=== PATIENT | male | born 1955 | race Caucasian/White ===

== ENCOUNTER → 2016-08-12 | Outpatient (REF) | payer BC ==
[~2016-08-12] MED LIST: ASPI325T PO; ATEN25TA PO; ATOR1TAB21 PO; CIAL20TA PO; FLUO0.01 EX; LISI-542 PO; NITR0.1S TL; NITR0.4S14 SL; NITR400A5 TL; OMEP20CA3 PO; VALT1TAB PO; VOLT1GEL15 TD
[2016-08-12 13:29] LABS: BASO % 0.7 % (0.0-1.0); EOS # 0.3 K/mm3 (0.0-0.50); EOS % 4.9 % (0.0-3.0); LARGE UNSTAINED CELL # 0.2 K/mm3 (0.0-0.4); LARGE UNSTAINED CELL % 3.8 % (0.0-4.0); LYMPH # 1.4 K/mm3 (1.5-4.5); LYMPH % 24.8 % (24.0-44.0); MEAN CORPUSCULAR HEMOGLOBIN 32.2 pg (27.0-33.0); MEAN CORPUSCULAR HGB CONC 34.1 g/dl (32.0-36.5); MEAN CORPUSCULAR VOLUME 94.5 fl (80.0-96.0); MONO # 0.4 K/mm3 (0.0-0.8); NEUTROPHILS # 3.3 K/mm3 (1.8-7.7); NEUTROPHILS % 58.8 % (36.0-66.0); PLATELET COUNT, AUTOMATED 264 k/mm3 (150-450); RED CELL DISTRIBUTION WIDTH 12.6 % (11.5-14.5); WHITE BLOOD COUNT 5.7 K/mm3 (4.0-10.0)
[2016-08-12 14:37] LABS: ALBUMIN 4.2 GM/DL (3.2-5.2); ALBUMIN/GLOBULIN RATIO 1.17 (1.00-1.93); ALKALINE PHOSPHATASE 56 U/L (45-117); ALT/SGPT 26 U/L (12-78); ANION GAP 7 MEQ/L (8-16); AST/SGOT 21 U/L (15-37); BILIRUBIN,TOTAL 0.5 MG/DL (0.2-1.0); BLOOD UREA NITROGEN 10 MG/DL (7-18); CALCIUM LEVEL 9.3 MG/DL (8.8-10.2); CARBON DIOXIDE LEVEL 30 MEQ/L (21-32); CHLORIDE LEVEL 105 MEQ/L (98-107); CHOLESTEROL LEVEL 194 MG/DL (<200); CREATININE FOR GFR 0.98 MG/DL (0.70-1.30); FREE T4 0.87 NG/DL (0.76-1.46); GLOMERULAR FILTRATION RATE > 60.0 (>49); GLUCOSE, FASTING 104 MG/DL (80-110); SODIUM LEVEL 142 MEQ/L (136-145); TOTAL PROTEIN 7.8 GM/DL (6.4-8.2); TRIGLYCERIDES LEVEL 60 MG/DL (<150)
[2016-08-12 14:38] LABS: POTASSIUM SERUM 5.3 MEQ/L (3.5-5.1)
== END ==
LOC: M LAB REF 12:46
PROVIDERS: ATTEND Family Medicine
DX: E78.5 Hyperlipidemia, unspecified (principal); Z13.29 Encounter for screening for other suspected endocrine disorder; Z13.0 Encounter for screening for diseases of the blood and blood-forming organs and certain disorders involving the immune mechanism; Z12.5 Encounter for screening for malignant neoplasm of prostate
CPT/HCPCS: 80053; 80061; 84439; 84443; 85025; G0103

== ENCOUNTER → 2017-08-15 | Outpatient (CLI) | payer BC ==
[2017-08-15 12:27] LABS: BASO % 0.5 % (0.0-1.0); EOS # 0.1 10^3/uL (0.0-0.50); EOS % 1.5 % (0.0-3.0); HEMATOCRIT 42.5 % (42.0-52.0); HEMOGLOBIN 14.4 g/dl (13.5-17.5); IMMATURE GRANULOCYTE % 0.4 % (0-3.0); LYMPH # 1.4 10^3/uL (1.5-4.5); LYMPH % 17.6 % (24.0-44.0); MEAN CORPUSCULAR HEMOGLOBIN 31.2 pg (27.0-33.0); MEAN CORPUSCULAR HGB CONC 33.9 g/dl (32.0-36.5); MONO # 0.7 10^3/uL (0.0-0.8); MONO % 9.1 % (0.0-5.0); NEUTROPHILS # 5.6 10^3/uL (1.8-7.7); NEUTROPHILS % 70.9 % (36.0-66.0); PLATELET COUNT, AUTOMATED 268 10^3/uL (150-450); RED BLOOD COUNT 4.62 10^6/uL (4.30-6.10); RED CELL DISTRIBUTION WIDTH 12.7 % (11.5-14.5); WHITE BLOOD COUNT 7.9 10^3/uL (4.0-10.0)
[2017-08-15 12:59] LABS: ALBUMIN 4.2 GM/DL (3.2-5.2); ALKALINE PHOSPHATASE 62 U/L (45-117); ALT/SGPT 25 U/L (12-78); ANION GAP 7 MEQ/L (8-16); AST/SGOT 18 U/L (7-37); BILIRUBIN,TOTAL 0.7 MG/DL (0.2-1.0); BLOOD UREA NITROGEN 13 MG/DL (7-18); CALCIUM LEVEL 9.2 MG/DL (8.8-10.2); CARBON DIOXIDE LEVEL 31 MEQ/L (21-32); CHLORIDE LEVEL 102 MEQ/L (98-107); CHOLESTEROL LEVEL 197 MG/DL (<200); CHOLESTEROL RISK RATIO 2.698 (<5); CREATININE FOR GFR 1.04 MG/DL (0.70-1.30); FREE T4 0.89 NG/DL (0.76-1.46); GLOMERULAR FILTRATION RATE > 60.0 (>49); GLUCOSE, FASTING 113 MG/DL (70-100); HDL CHOLESTEROL 73 MG/DL (>40); LDL CHOLESTEROL 109.4 MG/DL (<100); NON-HDL-C 124 MG/DL; PSA SCREENING 1.16 NG/ML (< 4.0); SODIUM LEVEL 140 MEQ/L (136-145); TOTAL PROTEIN 7.7 GM/DL (6.4-8.2); TRIGLYCERIDES LEVEL 73 MG/DL (<150)
[2017-08-15 13:08] LABS: POTASSIUM SERUM 5.4 MEQ/L (3.5-5.1)
[2017-08-16 10:30] LABS: ESTIMATED AVERAGE GLUCOSE 117 MG/DL (60-110); HEMOGLOBIN A1c 5.7 %
== END ==
LOC: M ADAMS 10:47
DX: Z13.0 Encounter for screening for diseases of the blood and blood-forming organs and certain disorders involving the immune mechanism (principal); E78.5 Hyperlipidemia, unspecified; Z13.29 Encounter for screening for other suspected endocrine disorder
CPT/HCPCS: 84443

== ENCOUNTER → 2017-08-17 | Outpatient (REF) | payer BC ==
[2017-08-17 20:12] LABS: APPEARANCE, URINE CLEAR (CLEAR); BACTERIA, URINE AUTO NEGATIVE (NEGATIVE); BILIRUBIN, URINE AUTO NEGATIVE (NEGATIVE); BLOOD, URINE BLOOD NEGATIVE (NEGATIVE); COLOR, URINE YELLOW (YELLOW); GLUCOSE, URINE (UA) AUTO NEGATIVE (NEGATIVE); KETONE, URINE AUTO NEGATIVE (NEGATIVE); LEUKOCYTE ESTERASE, URINE AUTO NEGATIVE (NEGATIVE); MUCUS, URINE SMALL (NEGATIVE); NITRITE, URINE AUTO NEGATIVE (NEGATIVE); PROTEIN, URINE AUTO NEGATIVE (NEGATIVE); RBC, URINE AUTO 0 /HPF (0-3); SPECIFIC GRAVITY URINE AUTO 1.009 (1.002-1.035); SQUAMOUS EPITHELIAL CELL UR AU 0 /HPF (0-6); UROBILINOGEN, URINE AUTO 0.2 mg/dL (0.0-2.0); WBC, URINE AUTO 0 /HPF (0-3)
== END ==
LOC: M SMT 17:13
DX: R36.1 Hematospermia (principal)

== ENCOUNTER 2018-08-10 10:05 | Emergency (ER) | payer BC, OTHER ==
[~2018-08-10] VITALS: Ht 170.2 cm; Wt 77.1 kg
[~2018-08-10 10:05] MED LIST changes: +ASPI-1 PO; -ASPI325T PO; -FLUO0.01 EX; +FLUO0.0112 EX; -OMEP20CA3 PO; +OMEP20CA4 PO
[2018-08-10] MEDS ORDERED: NEXI20TA PO (11:01)
[2018-08-10] MEDS ORDERED: BISO5TAB5 PO (11:01)
--- NOTE | 2018-08-10 11:06 | REP ---
Clinical: Right hip pain Technique: Neutral and frog lateral views of the right hip. Findings: Mild medial joint space narrowing and subtle increased sclerosis to the acetabular roof with early spurring. No acute fracture dislocation. Impression: Mild arthritic degenerative changes. Electronically Signed by Vishal Guzmán MD 08/10/2018 10:58 A
--- NOTE | 2018-08-10 11:15 | REP ---
Clinical: Lower back pain. Technique: AP, lateral, bilateral oblique and coned-down views of the lumbosacral spine. Findings: Moderate/early advanced multilevel degenerative disc osteophyte complexes are appreciated throughout the visualized lower thoracic and lumbosacral spine. Alignment and lordosis maintained. No acute fracture / compression injury or subluxation. Impression: Moderate/early advanced multilevel degenerative spondylosis. Electronically Signed by Vishal Guzmán MD 08/10/2018 11:07 A
[2018-08-10 11:34] VITALS: BP 155/80
[2018-08-10] MEDS ORDERED: PRED10TA2 PO (11:42)
[2018-08-10] MEDS ORDERED: NEUR300C PO (11:42)
== END 2018-08-10 11:52 | disposition home or self-care (01) ==
LOC: M ED 10:05
DX: M16.11 Unilateral primary osteoarthritis, right hip (principal); M51.16 Intervertebral disc disorders with radiculopathy, lumbar region; E78.5 Hyperlipidemia, unspecified; I25.2 Old myocardial infarction; Z95.5 Presence of coronary angioplasty implant and graft; Z87.891 Personal history of nicotine dependence; Z91.048 Other nonmedicinal substance allergy status; Z79.899 Other long term (current) drug therapy; Z79.82 Long term (current) use of aspirin

== ENCOUNTER → 2018-08-25 | Outpatient (CLI) | payer OTHER ==
[~2018-08-25] MED LIST changes: +BISO5TAB5 PO; +NEUR300C PO; +NEXI20TA PO; +PRED10TA2 PO
[2018-08-25 17:35] LABS: BASO % 0.5 % (0.0-1.0); EOS # 0.1 10^3/uL (0.0-0.50); HEMATOCRIT 44.8 % (42.0-52.0); HEMOGLOBIN 14.6 g/dl (13.5-17.5); LYMPH # 1.8 10^3/uL (1.5-4.5); MEAN CORPUSCULAR HGB CONC 32.6 g/dl (32.0-36.5); MEAN CORPUSCULAR VOLUME 98.2 fl (80.0-96.0); MONO # 0.8 10^3/uL (0.0-0.8); MONO % 8.7 % (0.0-5.0); NEUTROPHILS # 5.9 10^3/uL (1.8-7.7); NEUTROPHILS % 68.5 % (36.0-66.0); PLATELET COUNT, AUTOMATED 235 10^3/uL (150-450); RED BLOOD COUNT 4.56 10^6/uL (4.30-6.10); WHITE BLOOD COUNT 8.6 10^3/uL (4.0-10.0)
[2018-08-25 19:33] LABS: ALBUMIN 3.9 GM/DL (3.2-5.2); ALT/SGPT 32 U/L (12-78); BILIRUBIN,TOTAL 0.5 MG/DL (0.2-1.0); BLOOD UREA NITROGEN 14 MG/DL (7-18); CALCIUM LEVEL 9.1 MG/DL (8.8-10.2); CARBON DIOXIDE LEVEL 30 MEQ/L (21-32); CHLORIDE LEVEL 105 MEQ/L (98-107); CHOLESTEROL LEVEL 201 MG/DL (<200); CHOLESTEROL RISK RATIO 2.871 (<5); CREATININE FOR GFR 0.92 MG/DL (0.70-1.30); GLOMERULAR FILTRATION RATE > 60.0 (>49); GLUCOSE, FASTING 98 MG/DL (70-100); HDL CHOLESTEROL 70 MG/DL (>40); LDL CHOLESTEROL 111 MG/DL (<100); NON-HDL-C 131 MG/DL; POTASSIUM SERUM 4.9 MEQ/L (3.5-5.1); SODIUM LEVEL 142 MEQ/L (136-145); TOTAL PROTEIN 7.5 GM/DL (6.4-8.2); TRIGLYCERIDES LEVEL 100 MG/DL (<150)
== END ==
LOC: M ADAMS 09:27
PROVIDERS: ATTEND Family Medicine
DX: Z12.5 Encounter for screening for malignant neoplasm of prostate (principal); Z13.0 Encounter for screening for diseases of the blood and blood-forming organs and certain disorders involving the immune mechanism; E78.5 Hyperlipidemia, unspecified; Z13.29 Encounter for screening for other suspected endocrine disorder
CPT/HCPCS: 36415; 80053; 80061; 84443; 85025; G0103

== ENCOUNTER → 2018-11-03 | Outpatient (REF) | payer OTHER ==
[~2018-11-03] MED LIST changes: -BISO5TAB5 PO; +BISO5TAB9 PO
[2018-11-03 13:21] LABS: ALBUMIN 3.9 GM/DL (3.2-5.2); ALT/SGPT 28 U/L (12-78); BILIRUBIN,TOTAL 0.5 MG/DL (0.2-1.0); BLOOD UREA NITROGEN 19 MG/DL (7-18); CALCIUM LEVEL 8.8 MG/DL (8.8-10.2); CARBON DIOXIDE LEVEL 29 MEQ/L (21-32); CHLORIDE LEVEL 106 MEQ/L (98-107); CHOLESTEROL LEVEL 166 MG/DL (<200); CHOLESTEROL RISK RATIO 2.813 (<5); CREATININE FOR GFR 0.94 MG/DL (0.70-1.30); GLOMERULAR FILTRATION RATE > 60.0 (>49); GLUCOSE, FASTING 94 MG/DL (70-100); HDL CHOLESTEROL 59 MG/DL (>40); LDL CHOLESTEROL 83 MG/DL (<100); NON-HDL-C 107 MG/DL; POTASSIUM SERUM 4.4 MEQ/L (3.5-5.1); SODIUM LEVEL 141 MEQ/L (136-145); TOTAL PROTEIN 7.3 GM/DL (6.4-8.2); TRIGLYCERIDES LEVEL 118 MG/DL (<150)
== END ==
LOC: M LAB 12:04
PROVIDERS: ATTEND Physician Assistant
DX: E78.00 Pure hypercholesterolemia, unspecified (principal); I10 Essential (primary) hypertension; I25.10 Atherosclerotic heart disease of native coronary artery without angina pectoris

== ENCOUNTER → 2019-07-17 | Outpatient (REF) | payer OTHER ==
[~2019-07-17] MED LIST changes: +BISO5TAB14 PO; -BISO5TAB9 PO; +OMEP1CAP73 PO; -OMEP20CA4 PO
[2019-07-18 13:57] LABS: BLOOD UREA NITROGEN 14 MG/DL (7-18); CALCIUM LEVEL 9.1 MG/DL (8.8-10.2); CARBON DIOXIDE LEVEL 28 MEQ/L (21-32); CHLORIDE LEVEL 108 MEQ/L (98-107); CREATININE FOR GFR 1.03 MG/DL (0.70-1.30); GLOMERULAR FILTRATION RATE > 60.0 (>49); GLUCOSE, FASTING 93 MG/DL (70-100); POTASSIUM SERUM 4.7 MEQ/L (3.5-5.1); SODIUM LEVEL 139 MEQ/L (136-145)
== END ==
LOC: M LABDRWAD 12:39
PROVIDERS: ATTEND Physician Assistant
DX: I10 Essential (primary) hypertension (principal)

== ENCOUNTER → 2019-12-19 | Outpatient (CLI) | payer OTHER ==
[~2019-12-19] MED LIST changes: +E-Z-GAS II EFFERVESCENT PACKET (SODIUM BICARB./CITRIC ACID/SIMETHICONE) As Ordered ONE; +E-Z-HD 98% w/w 340GM SUSP BTL As Ordered ONE; +E-Z-PAQUE 96% w/w SUSP 176GM BTL As Ordered ONE
--- NOTE | 2019-12-19 17:32 | REP ---
INDICATION: VOMITING. COMPARISON: None TECHNIQUE: This procedure was performed by Isela Kraft, [facility], under the direct supervision of Dr. Aguilera. Images were reviewed with Dr. Aguilera prior to dictation. Liquid barium and gas producing crystals were given in the erect position, as well as liquid barium in the prone oblique position in order to perform a double contrast upper GI examination. FINDINGS: The special effects artist film shows no organomegaly or pathological masses. The intestinal gas pattern is unremarkable. There are multiple vascular calcifications. The oral and pharyngeal stages of deglutition demonstrate laryngeal penetration. Esophageal transport is prompt and efficient and there is no evidence of esophagitis, stricture, or mucosal ring. There is no evidence of a hiatal hernia. Gastroesophageal reflux was visualized to the level of the ana maría. The stomach camacho are normally outlined. The rugal folds are smooth and regular. There is no gastritis, neoplasm, or ulcerative disease. The duodenal camacho are normally outlined. Descending duodenal diverticulum the mucosal folds are smooth and regular. There is no duodenitis, peptic ulcer disease or neoplasm. The visualized portion of the proximal small bowel appears normal in course and caliber. IMPRESSION: 1. Laryngeal penetration. 2.Gastroesophageal reflux to the level of the ana maría. 3.Descending duodenal diverticulum. 0.6 minutes of fluoroscopy time was utilized for this procedure. Some fluoroscopic images are performed with last image hold technology. These images require no additional radiation. <Electronically signed by Isela Kraft > 12/19/19 1616 <Electronically signed by Aki Aguilera > 12/19/19 [id number]
== END ==
LOC: M RAD 09:03
PROVIDERS: ATTEND Physician Assistant Medical
DX: R11.10 Vomiting, unspecified (principal); K21.9 Gastro-esophageal reflux disease without esophagitis; R10.13 Epigastric pain

== ENCOUNTER → 2020-01-11 | Outpatient (CLI) | payer OTHER ==
[~2020-01-11] MED LIST changes: -E-Z-GAS II EFFERVESCENT PACKET (SODIUM BICARB./CITRIC ACID/SIMETHICONE) As Ordered ONE; -E-Z-HD 98% w/w 340GM SUSP BTL As Ordered ONE; -E-Z-PAQUE 96% w/w SUSP 176GM BTL As Ordered ONE; +FAMO40TA3 PO; +GABA-1171 PO; +SUCR1ORA PO
== END ==
LOC: M LABSMTC 13:08
PROVIDERS: ATTEND Anesthesiology
DX: Z01.812 Encounter for preprocedural laboratory examination (principal); Z20.828 Contact with and (suspected) exposure to other viral communicable diseases

== ENCOUNTER 2020-01-16 13:12 | Day surgery (SDC) | payer OTHER ==
[~2020-01-16] VITALS: Ht 170.2 cm; Wt 75.7 kg
[~2020-01-16 13:12] MED LIST changes: +NS 1,000 ML IV ONE
[2020-01-16] MEDS ORDERED: LIDOCAINE 2% 100MG/5ML SDV (FOR ANES.) As Ordered ONE (14:43)
[2020-01-16] MEDS ORDERED: propofoL 200 MG/20 ML VIAL As Ordered ONE (14:43)
--- NOTE | 2020-01-16 14:44 | ROOR ---
Patient Name: Vinayak Perez Procedure Date: 01/16/2020 2:23 PM Date of : 1955 Age: 65 Room: [facility] Gender: Male Note Status: Finalized Procedure: Upper GI endoscopy Indications: Epigastric abdominal pain, Heartburn, Nausea with vomiting Providers: Teodoro BOLDEN MD Referring MD: Chasidy HOLLAND DO Requesting Provider: Medicines: Monitored Anesthesia Care Complications: No immediate complications. Procedure: Pre-Anesthesia Assessment: - The heart rate, respiratory rate, oxygen saturations, blood pressure, adequacy of pulmonary ventilation, and response to care were monitored throughout the procedure. The Endoscope was introduced through the mouth, and advanced to the second part of duodenum. The upper GI endoscopy was accomplished without difficulty. The patient tolerated the procedure well. Findings: The examined esophagus was normal. Very small (insignificant) Hiatal Hernia. Diffuse mildly erythematous mucosa was found in the gastric antrum. Biopsies were taken with a cold forceps for Helicobacter pylori testing. The exam of the stomach was otherwise normal. (large volume) The examined duodenum was normal. Incidental: small duodenal diverticulum is seen. Impression: - Normal esophagus. - Very small sliding hiatal hernia. - Minimal gastritis/erythematous mucosa in the antrum. Biopsied. - The stomach is otherwise normal. - Normal examined duodenum with a small duodenal diverticulum. Recommendation: - Eat smaller, more frequent meals throughout the day. - Low fat diet. - Liquid/soft foods are tolerated better than solid foods. - Low fiber/well cooked vegetables are tolerated better than high fiber/fibrous foods/raw vegetables. - Avoid medications that inhibit gastric/intestinal motility such as narcotic medications. - Follow an antireflux regimen. - Telephone endoscopist for pathology results in 2 weeks. Procedure Code(s): --- Professional --- 45418, Esophagogastroduodenoscopy, flexible, transoral; with biopsy, single or multiple Diagnosis Code(s): --- Professional --- K31.89, Other diseases of stomach and duodenum R10.13, Epigastric pain R12, Heartburn R11.2, Nausea with vomiting, unspecified CPT copyright 2019 [employer]. All rights reserved. The codes documented in this report are preliminary and upon hand alterations tailor review may be revised to meet current compliance requirements. Teodoro Bolden MD Tedooro BOLDEN MD 01/16/2020 2:44:05 PM Electronically signed by Teodoro BOLDEN MD Number of Addenda: 0 Note Initiated On: 01/16/2020 2:23 PM Estimated Blood Loss: Estimated blood loss: none.
[2020-01-16 15:00] VITALS: BP 159/79
== END 2020-01-16 15:18 | disposition home or self-care (01) ==
LOC: M OPP 13:12
PROVIDERS: ATTEND Internal Medicine Gastroenterology
DX: K31.9 Disease of stomach and duodenum, unspecified (principal); J44.9 Chronic obstructive pulmonary disease, unspecified; I25.2 Old myocardial infarction; R12 Heartburn; R11.2 Nausea with vomiting, unspecified; Z79.82 Long term (current) use of aspirin; Z79.899 Other long term (current) drug therapy; Z88.8 Allergy status to other drugs, medicaments and biological substances; Z88.1 Allergy status to other antibiotic agents; Z91.040 Latex allergy status; Z91.048 Other nonmedicinal substance allergy status; Z95.5 Presence of coronary angioplasty implant and graft; Z87.891 Personal history of nicotine dependence

== ENCOUNTER → 2020-01-29 | Outpatient (REF) | payer MEDICARE, OTHER ==
[~2020-01-29] MED LIST changes: -LISI-542 PO; +LISI-898 PO; -NS 1,000 ML IV ONE
[2020-01-30 13:18] LABS: BLOOD UREA NITROGEN 17 MG/DL (7-18); CALCIUM LEVEL 9.4 MG/DL (8.8-10.2); CARBON DIOXIDE LEVEL 32 MEQ/L (21-32); CHLORIDE LEVEL 108 MEQ/L (98-107); CREATININE FOR GFR 1.05 MG/DL (0.70-1.30); GLOMERULAR FILTRATION RATE > 60.0 (>49); GLUCOSE, FASTING 95 MG/DL (70-100); SODIUM LEVEL 143 MEQ/L (136-145)
== END ==
LOC: M LABDRWAD 12:16
PROVIDERS: ATTEND Physician Assistant
DX: I10 Essential (primary) hypertension (principal)

== ENCOUNTER 2020-04-23 13:51 | Observation (INO) | payer MEDICARE, OTHER ==
[~2020-04-23] VITALS: Ht 170.2 cm; Wt 77.1 kg
[2020-04-23] MEDS ORDERED: OMEP-221 PO (14:03)
[2020-04-23] MEDS ORDERED: LISI10TA22 PO (14:03)
[2020-04-23] MEDS ORDERED: MELO15TA28 PO (14:03)
--- NOTE | 2020-04-23 14:24 | REP ---
INDICATION: neuro symptoms. COMPARISON: None. TECHNIQUE: Helical scanning is acquired. 5 mm axial images were reformatted. Coronal MPR images were generated. FINDINGS: Bone window settings demonstrate an intact bony calvarium. There is no evidence of skull fracture or incidental bony calvarial lesion. There is mild mucosal thickening right frontal and right ethmoid air cells. The visualized paranasal sinuses appear otherwise clear. No intraorbital abnormality is seen. On soft tissue window setting images; the lateral, third, and fourth ventricles are normal in size and position. Caldera-white differentiation pattern is normal above and below the tentorium. There are is no evidence of intracranial hemorrhage. No mass, edema, infarction, or midline shift is seen. No extra-axial fluid collection is appreciated. There is some vascular calcification at the skull base affecting the distal internal carotid and distal vertebral arteries. There is mucosal thickening affecting the right frontal and right ethmoid sinuses. IMPRESSION: Mild right frontal and ethmoid sinus mucosal changes. Vascular calcification. No acute intracranial abnormality.. <Electronically signed by Aki Aguilera > 04/23/20 0844
--- NOTE | 2020-04-23 15:06 | REP ---
INDICATION: CVA. COMPARISON: . TECHNIQUE: Portable AP chest with the patient sitting.. FINDINGS: The lung tang are clear. Cardiac size is normal. The deana, mediastinum and skeletal structures are unremarkable. IMPRESSION: Essentially negative portable chest <Electronically signed by Renaldo Foley > 04/23/20 2547
[2020-04-23 15:17] LABS: BASO # 0.1 10^3/uL (0.0-0.2); BASO % 0.5 % (0.0-1.0); EOS # 0.1 10^3/uL (0.0-0.5); EOS % 1.4 % (0.0-3.0); HEMOGLOBIN 13.9 g/dl (13.5-17.5); LYMPH # 1.4 10^3/uL (1.5-5.0); LYMPH % 15.1 % (24.0-44.0); MEAN CORPUSCULAR HGB CONC 34.8 g/dl (32.0-36.5); MEAN CORPUSCULAR VOLUME 89.3 fl (80.0-96.0); MONO # 0.8 10^3/uL (0.0-0.8); MONO % 8.6 % (2.0-8.0); NEUTROPHILS # 6.8 10^3/uL (1.5-8.5); PLATELET COUNT, AUTOMATED 257 10^3/uL (150-450); RED BLOOD COUNT 4.48 10^6/uL (4.30-6.10); WHITE BLOOD COUNT 9.2 10^3/uL (4.0-10.0)
[2020-04-23 15:30] LABS: INR 0.96
[2020-04-23 15:31] LABS: PARTIAL THROMBOPLASTIN TIME 26.1 SECONDS (24.2-38.5)
[2020-04-23 15:54] LABS: ALBUMIN 4.3 GM/DL (3.2-5.2); ALT/SGPT 25 U/L (12-78); BILIRUBIN,DIRECT 0.2 MG/DL (0.0-0.2); BILIRUBIN,TOTAL 0.6 MG/DL (0.2-1.0); BLOOD UREA NITROGEN 14 MG/DL (7-18); CALCIUM LEVEL 8.7 MG/DL (8.8-10.2); CARBON DIOXIDE LEVEL 28 MEQ/L (21-32); CHLORIDE LEVEL 95 MEQ/L (98-107); CK-MB VALUE MASS 1.3 NG/ML (<3.6); CPK CREATINE PHOSPHOKINASE 92 U/L (39-308); CREATININE FOR GFR 0.85 MG/DL (0.70-1.30); FREE T4 0.94 NG/DL (0.76-1.46); GLOMERULAR FILTRATION RATE > 60.0 (>49); GLUCOSE, FASTING 108 MG/DL (70-100); MB/CK RELATIVE INDEX 1.41 (< OR =4); POTASSIUM SERUM 4.3 MEQ/L (3.5-5.1); SODIUM LEVEL 129 MEQ/L (136-145); THYROID STIMULATING HORMONE 0.674 uIU/ML (0.358-3.740); TOTAL PROTEIN 7.8 GM/DL (6.4-8.2); TROPONIN I < 0.02 NG/ML (< 0.10)
[2020-04-23] MEDS ORDERED: ATOR80TA59 PO (16:23)
[2020-04-23 16:45] VITALS: BP 140/72
[2020-04-23] MEDS ORDERED: NITROGLYCERIN 0.4 MG SUBL TABLET SL PRN (16:45)
--- NOTE | 2020-04-23 16:55 | ECGEPIP ---
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
[2020-04-23] MEDS ORDERED: LORazepam 1 MG TAB PO PRN (17:10)
[2020-04-23] MEDS ORDERED: hydrALAZINE 20MG/ML 1ML VIAL (J0360 PER 20MG) IV PRN (17:10)
--- NOTE | 2020-04-23 17:15 | HPEPDOC ---
[facility] Medical History & Physical Date of Admission Apr 23, 2020 Date of Service: Apr 23, 2020 History and Physical H&P dictated pls call hypertype to stat transcribe. Vital Signs Vital Signs Date Time Temp Pulse Resp B/P (MAP) Pulse Ox O2 Delivery O2 Flow Rate FiO2 04/23/20 16:45 57 18 141/83 (102) 95 Room Air 04/23/20 13:52 97.1 Laboratory Data Labs 24H Laboratory Tests 2 04/23/20 15:04: Immature Granulocyte % (Auto) 0.4, Neutrophils (%) (Auto) 74.0H, Lymphocytes (%) (Auto) 15.1L, Monocytes (%) (Auto) 8.6H, Eosinophils (%) (Auto) 1.4, Basophils (%) (Auto) 0.5, Neutrophils # (Auto) 6.8, Lymphocytes # (Auto) 1.4L, Monocytes # (Auto) 0.8, Eosinophils # (Auto) 0.1, Basophils # (Auto) 0.1, Nucleated Red Blood Cells % (auto) 0.0, Prothrombin Time 13.0, Prothromb Time International Ratio 0.96, Activated Partial Thromboplast Time 26.1, Anion Gap 6L, Glomerular Filtration Rate > 60.0, Calcium Level 8.7L, Total Bilirubin 0.6, Direct Bilirubin 0.2, Aspartate Amino Transf (AST/SGOT) 18, Alanine Aminotransferase (ALT/SGPT) 25, Alkaline Phosphatase 78, Total Creatine Kinase 92, Creatine Kinase MB 1.3, Creatine Kinase MB Relative Index 1.41, Troponin I < 0.02, Total Protein 7.8, Albumin 4.3, Albumin/Globulin Ratio 1.2, Thyroid Stimulating Hormone (TSH) 0.674, Free Thyroxine 0.94 CBC/BMP Laboratory Tests 04/23/20 15:04 Microbiology Microbiology 04/23/20 Respiratory Virus Panel (PCR) ([facility]), Received Pending Home Medications Scheduled Aspirin (Aspirin) 325 Mg Tab, 325 MG PO QHS Atorvastatin Calcium (Atorvastatin Calcium) 80 Mg Tablet, 80 MG PO QHS Bisoprolol Fumarate (Bisoprolol Fumarate) 5 Mg Tablet, 5 MG PO QHS Famotidine (Famotidine) 40 Mg Tablet, 40 MG PO DAILY Gabapentin (Gabapentin) 100 Mg Capsule, 100 MG PO BID Lisinopril (Lisinopril) 10 Mg Tablet, 10 MG PO QHS Meloxicam (Meloxicam) 15 Mg Tablet, 7.5 MG PO BID Omeprazole (Omeprazole) 40 Mg Capsule.dr, 40 MG PO QHS Scheduled PRN Nitroglycerin (Nitroglycerin) 0.4 Mg Sub, 0.4 MG SL NITRO PRN for CHEST PAIN Tadalafil (Cialis) 20 Mg Tab, 20 MG PO DAILY PRN for ERECTILE DYSFUNCTION Allergies Coded Allergies: bacitracin (Verified Allergy, Intermediate, blisters, 01/08/20) latex (Verified Allergy, Intermediate, rash, 01/08/20) with intermediate exposure neomycin (Verified Allergy, Intermediate, blisters, 01/08/20) polymyxin B (Verified Allergy, Intermediate, blisters, 01/08/20) TAPE (Verified Allergy, Mild, BANDAIDS - RASH, 01/08/20) A-FIB/CHADSVASC A-FIB History Current/History of A-Fib/PAF?: No Current PO Anticoag Therapy: No Age/Risk Factor Scoring CHADSVASC: CHADSVASC Response (Comments) Value Age Risk Factor Age 65-74 years old 1 Gender Risk Factor Male 0 Hx of CHF No 0 Hx of HTN Yes 1 Hx of Stroke/TIA/or VTE No 0 Hx of Diabetes No 0 Hx of Vascular Disease No 0 Total 2 Treatment Treatment ordered: NONE LEONEL NEFF MD Apr 23, 2020 17:15
[2020-04-23] MEDS ORDERED: MULTIVITAMIN -ADULT INJECTION 10 ML, THIAMINE INJection 100 MG, FOLIC ACID 1 MG in NS 1... IV ONE (18:00)
[2020-04-23 19:00] VITALS: BP 140/72
[2020-04-23 20:00] VITALS: BP_SYST 140; BP_SYST 168; BP_DIAS 66; BP_DIAS 72
[2020-04-23] MEDS ORDERED: ASPIRIN 325 MG TAB PO SCH (21:00)
[2020-04-23] MEDS ORDERED: ATORVASTATIN 20 MG TAB PO SCH (21:00)
[2020-04-23] MEDS: bisoproloL fumarate 5 MG TAB PO SCH ×2 (21:00→21:34)
[2020-04-23] MEDS ORDERED: OMEPRAZOLE 20 MG CAP PO SCH (21:00)
[2020-04-23] MEDS: MELOXICAM (MOBIC) 7.5 MG TAB PO SCH (21:32)
[2020-04-23] MEDS: GABAPENTIN 100 MG CAP PO SCH (21:33)
--- NOTE | 2020-04-23 21:46 | REPVR ---
PROCEDURE INFORMATION: Exam: MR Angiogram Head Without Contrast, Arteries Exam date and time: 04/23/2020 9:08 PM Age: 65 years old Clinical indication: Cognitive deficit; Altered mental status; Patient HX: AMS since subsided; Additional info: CVA TECHNIQUE: Imaging protocol: MR angiogram head without contrast. Exam focused on the arteries. 3D rendering (Not supervised by radiologist): MIP and/or 3D reconstructed images were created by the technologist. COMPARISON: CT Head without contrast 04/23/2020 2:14 PM FINDINGS: ANTERIOR CIRCULATION: Right internal carotid artery: Intracranial segment is patent with no significant stenosis. No aneurysm. Right middle cerebral artery: No occlusion or significant stenosis. No aneurysm. Right anterior cerebral artery: No occlusion or significant stenosis. No aneurysm. Left internal carotid artery: Intracranial segment is patent with no significant stenosis. No aneurysm. Left middle cerebral artery: No occlusion or significant stenosis. No aneurysm. Left anterior cerebral artery: No occlusion or significant stenosis. No aneurysm. POSTERIOR CIRCULATION: Right vertebral artery: No occlusion or significant stenosis. No aneurysm. Left vertebral artery: No occlusion or significant stenosis. No aneurysm. Basilar artery: No occlusion or significant stenosis. No aneurysm. Right posterior cerebral artery: No occlusion or significant stenosis. No aneurysm. Left posterior cerebral artery: No occlusion or significant stenosis. No aneurysm. IMPRESSION: No significant intracranial arterial abnormality identified. Electronically signed by: Amy Valera On 04/23/2020 21:46:07 PM
--- NOTE | 2020-04-23 21:48 | REPVR ---
PROCEDURE INFORMATION: Exam: MR Angiography Neck Without Contrast Exam date and time: 04/23/2020 9:08 PM Age: 65 years old Clinical indication: Cognitive deficit; Altered mental status; Patient HX: AMS since subsided; Additional info: Transient global amnesia TECHNIQUE: Imaging protocol: Magnetic resonance angiography of the neck without contrast. 3D rendering (Not supervised by radiologist): MIP and/or 3D reconstructed images were created by the technologist. COMPARISON: No relevant prior studies available. FINDINGS: Right common carotid artery: No stenosis. No dissection or occlusion. Right internal carotid artery: No stenosis of the extracranial segment. No dissection or occlusion. Right external carotid artery: No stenosis. No dissection or occlusion of the origin. Right vertebral artery: No stenosis. No dissection or occlusion. Left common carotid artery: No stenosis. No dissection or occlusion. Left internal carotid artery: No stenosis of the extracranial segment. No dissection or occlusion. Left external carotid artery: No stenosis. No dissection or occlusion of the origin. Left vertebral artery: No stenosis. No dissection or occlusion. IMPRESSION: No acute vascular abnormality identified in the neck. REFERENCES: NASCET CRITERIA. The degree of internal carotid artery stenosis is based on NASCET criteria. Normal is no stenosis. Mild is less than 50% stenosis. Moderate is 50-69% stenosis. Severe is 70% to 99% stenosis. Total occlusion is no detectable patent lumen. Electronically signed by: Amy Valera On 04/23/2020 21:48:39 PM
--- NOTE | 2020-04-23 21:51 | REPVR ---
PROCEDURE INFORMATION: Exam: MR Head Without Contrast Exam date and time: 04/23/2020 9:08 PM Age: 65 years old Clinical indication: Altered mental status/memory loss; Confusion or disorientation; Patient HX: AMS since subsided; Additional info: CVA TECHNIQUE: Imaging protocol: MR of the head without contrast. COMPARISON: CT Head without contrast 04/23/2020 2:14 PM FINDINGS: Brain: There is no evidence of an acute ischemic event. There is no evidence of a focal mass. There is no evidence of intracranial hemorrhage. No abnormal extra-axial fluid collections are identified. There are global involutional changes of the brain which are in keeping with the patient's age. Minimal signal changes in the periventricular white matter are nonspecific but statistically most likely reflect chronic microvascular ischemic disease. The midbrain and chrissie are normal. Cerebral ventricles: The ventricles are normal in size and configuration. Bones/joints: Unremarkable. Paranasal sinuses: There is mild sinus mucosal disease, with no air-fluid level identified. Mastoid air cells: There is no mastoid effusion detected. Orbital cavity: The orbits are normal. Soft tissues: Unremarkable. IMPRESSION: 1. No acute intracranial hemorrhage, mass or hemorrhage identified. 2. Involutional changes of the brain in keeping with the patient's age, with findings of mild chronic microvascular ischemic disease. Electronically signed by: Amy Valera On 04/23/2020 21:51:31 PM
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
[2020-04-24] VITALS: BP 130/72
[2020-04-24 04:00] VITALS: BP 122/71
[2020-04-24 05:59] LABS: BASO # 0.1 10^3/uL (0.0-0.2); BASO % 0.7 % (0.0-1.0); EOS # 0.2 10^3/uL (0.0-0.5); EOS % 3.2 % (0.0-3.0); HEMATOCRIT 40.5 % (42.0-52.0); HEMOGLOBIN 13.8 g/dl (13.5-17.5); LYMPH # 1.2 10^3/uL (1.5-5.0); LYMPH % 17.3 % (24.0-44.0); MEAN CORPUSCULAR HGB CONC 34.1 g/dl (32.0-36.5); MONO # 0.9 10^3/uL (0.0-0.8); MONO % 12.4 % (2.0-8.0); NEUTROPHILS # 4.7 10^3/uL (1.5-8.5); NEUTROPHILS % 65.8 % (36.0-66.0); PLATELET COUNT, AUTOMATED 227 10^3/uL (150-450); RED BLOOD COUNT 4.45 10^6/uL (4.30-6.10); WHITE BLOOD COUNT 7.1 10^3/uL (4.0-10.0)
[2020-04-24 06:17] LABS: ERYTHROCYTE SEDIMENTATION RATE 4 mm/hr (0-20)
[2020-04-24 08:00] VITALS: BP 136/63
[2020-04-24 08:15] LABS: ALBUMIN 3.8 GM/DL (3.2-5.2); ALT/SGPT 23 U/L (12-78); BLOOD UREA NITROGEN 12 MG/DL (7-18); CALCIUM LEVEL 8.6 MG/DL (8.8-10.2); CARBON DIOXIDE LEVEL 28 MEQ/L (21-32); CHLORIDE LEVEL 102 MEQ/L (98-107); CHOLESTEROL LEVEL 159 MG/DL (<200); CHOLESTEROL RISK RATIO 2.239 (<5); CREATININE FOR GFR 0.88 MG/DL (0.70-1.30); FREE THYROXINE INDEX 2.2 % (1.4-3.8); GLOMERULAR FILTRATION RATE > 60.0 (>49); GLUCOSE, FASTING 112 MG/DL (70-100); HDL CHOLESTEROL 71 MG/DL (>40); LDL CHOLESTEROL 71 MG/DL (<100); NON-HDL-C 88 MG/DL; POTASSIUM SERUM 4.6 MEQ/L (3.5-5.1); SODIUM LEVEL 135 MEQ/L (136-145); T UPTAKE 32 % (33-40); THYROXINE (T4) 6.9 UG/DL (4.5-12.0); TRIGLYCERIDES LEVEL 84 MG/DL (<150)
[2020-04-24] MEDS ORDERED: FAMOTIDINE 20 MG TAB PO SCH (09:00)
[2020-04-24] MEDS ORDERED: FOLIC ACID 1 MG TAB PO SCH (09:00)
[2020-04-24] MEDS ORDERED: MULTIVITAMINS/MINERALS THERAP 1 TAB PO SCH (09:00)
[2020-04-24] MEDS ORDERED: THIAMINE 100 MG TAB PO SCH (09:00)
--- NOTE | 2020-04-24 09:17 | DS.PDOC ---
Discharge Summary General Date of Admission Apr 23, 2020 at 16:09 Date of Discharge 04/24/20 Discharge Summary Hospitalist discharge summary dictated job #[id number]. 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 Vital Signs/I&Os Vital Signs Date Time Temp Pulse Resp B/P (MAP) Pulse Ox O2 Delivery O2 Flow Rate FiO2 04/24/20 04:00 97.2 57 17 122/71 (88) 98 Room Air I&O- Last 24 Hours up to 6 AM 04/24/20 05:59 Intake Total 700 ml Output Total 1650 ml Balance -950 ml Laboratory Data Labs 24H Laboratory Tests 2 04/23/20 15:04: Immature Granulocyte % (Auto) 0.4, Neutrophils (%) (Auto) 74.0H, Lymphocytes (%) (Auto) 15.1L, Monocytes (%) (Auto) 8.6H, Eosinophils (%) (Auto) 1.4, Basophils (%) (Auto) 0.5, Neutrophils # (Auto) 6.8, Lymphocytes # (Auto) 1.4L, Monocytes # (Auto) 0.8, Eosinophils # (Auto) 0.1, Basophils # (Auto) 0.1, Nucleated Red Blood Cells % (auto) 0.0, Prothrombin Time 13.0, Prothromb Time International Ratio 0.96, Activated Partial Thromboplast Time 26.1, Anion Gap 6L, Glomerular Filtration Rate > 60.0, Calcium Level 8.7L, Total Bilirubin 0.6, Direct Bilirubin 0.2, Aspartate Amino Transf (AST/SGOT) 18, Alanine Aminotransferase (ALT/SGPT) 25, Alkaline Phosphatase 78, Total Creatine Kinase 92, Creatine Romi se MB 1.3, Creatine Kinase MB Relative Index 1.41, Troponin I < 0.02, Total Protein 7.8, Albumin 4.3, Albumin/Globulin Ratio 1.2, Thyroid Stimulating Hormone (TSH) 0.674, Free Thyroxine 0.94 04/24/20 05:44: Immature Granulocyte % (Auto) 0.6, Neutrophils (%) (Auto) 65.8, Lymphocytes (%) (Auto) 17.3L, Monocytes (%) (Auto) 12.4H, Eosinophils (%) (Auto) 3.2H, Basophils (%) (Auto) 0.7, Neutrophils # (Auto) 4.7, Lymphocytes # (Auto) 1.2L, Monocytes # (Auto) 0.9H, Eosinophils # (Auto) 0.2, Basophils # (Auto) 0.1, Nucleated Red Blood Cells % (auto) 0.0, Anion Gap 5L, Glomerular Filtration Rate > 60.0, Calcium Level 8.6L, Total Bilirubin 1.0#, Aspartate Amino Transf (AST/SGOT) 15, Alanine Aminotransferase (ALT/SGPT) 23, Alkaline Phosphatase 68, Total Protein 7.0, Albumin 3.8, Albumin/Globulin Ratio 1.2, Thyroid Stimulating Hormone (TSH) 1.360, Erythrocyte Sedimentation Rate 4, C-Reactive Protein, Quantitative 0.30, Triglycerides Level 84, Total Cholesterol 159, LDL Cholesterol 71, Non-HDL Cholesterol (LDL + VLDL) 88, Total HDL Cholesterol 71, Cholesterol/HDL Ratio 2.239, Free Thyroxine Index 2.2, Thyroxine (T4) 6.9, Triiodothyronine (T3) Uptake 32L CBC/BMP Laboratory Tests 04/23/20 15:04 04/24/20 05:44 Microbiology Microbiology 04/23/20 Respiratory Virus Panel (PCR) ([facility]) - Final, Complete Discharge Medications Scheduled Aspirin (Aspirin) 325 Mg Tab, 325 MG PO QHS, (Reported) Atorvastatin Calcium (Atorvastatin Calcium) 80 Mg Tablet, 80 MG PO QHS, (Reported) Bisoprolol Fumarate (Bisoprolol Fumarate) 5 Mg Tablet, 5 MG PO QHS, (Reported) Famotidine (Famotidine) 40 Mg Tablet, 40 MG PO DAILY, (Reported) Gabapentin (Gabapentin) 100 Mg Capsule, 100 MG PO BID, (Reported) Lisinopril (Lisinopril) 10 Mg Tablet, 10 MG PO QHS, (Reported) Meloxicam (Meloxicam) 15 Mg Tablet, 7.5 MG PO BID, (Reported) Omeprazole (Omeprazole) 40 Mg Capsule.dr, 40 MG PO QHS, (Reported) Scheduled PRN Nitroglycerin (Nitroglycerin) 0.4 Mg Sub, 0.4 MG SL NITRO PRN for CHEST PAIN, (Reported) Tadalafil (Cialis) 20 Mg Tab, 20 MG PO DAILY PRN for ERECTILE DYSFUNCTION, (Reported) Allergies Coded Allergies: bacitracin (Verified Allergy, Intermediate, blisters, 01/08/20) latex (Verified Allergy, Intermediate, rash, 01/08/20) with usp exposure neomycin (Verified Allergy, Intermediate, blisters, 01/08/20) polymyxin B (Verified Allergy, Intermediate, blisters, 01/08/20) TAPE (Verified Allergy, Mild, BANDAIDS - RASH, 01/08/20) LEONEL NEFF MD Apr 24, 2020 09:10
[2020-04-24] MEDS: MELOXICAM (MOBIC) 7.5 MG TAB PO SCH (09:44)
[2020-04-24] MEDS: GABAPENTIN 100 MG CAP PO SCH (09:45)
--- NOTE | 2020-04-24 13:12 | DSES ---
DISCHARGE SUMMARY DATE OF ADMISSION: 04/23/2020 DATE OF DISCHARGE: 04/24/2020 PRIMARY DISCHARGE DIAGNOSIS: 1. Transient global amnesia. 2. History of CAD. 3. AK. 4. Prior smoker, quit in 2006 complicated by cardiac arrest during his AK. 5. Status post coronary stents x2. 6. Hypertension. 7. Hyperlipidemia. 8. Hiatal hernia. 9. Colonic polyps. 10.Gastroesophageal reflux disease. DISCHARGE MEDICATIONS: 1. Aspirin 325 daily. 2. Cialis as needed 20 mg. 3. Nitroglycerin 0.4 mg as needed. 4. Bisoprolol 5 mg q.h.s. 5. Gabapentin 100 b.i.d. 6. Famotidine 40 daily. 7. Meloxicam 7.5 b.i.d. 8. Lisinopril 10 daily. 9. Prilosec 40 daily. 10.Lipitor 80 mg q.h.s. DISCHARGE INSTRUCTIONS: Follow-up with Dr. Barnett within five days of hospital discharge. Patient is to see Dr. Wyman as an outpatient for follow-up for transient global amnesia. HOSPITAL COURSE: This is a 65-year-old male who presented to the Emergency Room with an acute onset of dizziness, disorientation that started at 4 in the morning when he got up, felt like the room was swirling and felt like a heat wave was going through his body, he went back to sleep, a few minutes later he could not get up, he could not remember what day it was, if he was supposed to work, did not how to use his phone or know the password. He has had no prior episodes in the past. He went back to sleep. He usually wakes up around 6:30 in the morning but woke up around 8 to 9 a.m. with a slight headache and chest tightness without any radiation, nausea, vomiting, epigastric pain, or palpitations, diaphoresis or a feeling of impending doom. He called his sister and appeared to be normal with no slurring of speech or word findings difficulties. His sister is an RN and told him to call his regular doctor and go to the ER for further evaluation. He called his doctor's office who then urged him to come into the ER. In the ER, the patient continued to have disorientation, thought it was 2003 instead of 2020, CT of the head was negative. Patient had no weakness, gait abnormalities or paresthesias. He had no word finding difficulties, or slurring of speech, but his memory continued to be a problem. No dizziness. No lightheadedness on arrival. MRI and MRA of the brain were both negative. EKG was sinus rhythm with some bradycardia, rate of 57 to 54. He was not orthostatic. Glucose level was normal at 108 on the basic metabolic panel. Exam was unremarkable. He had motor function of 5/5, no sensory disturbance. Mentation was back to baseline. The patient was admitted overnight under telemetry which remained sinus bradycardia between 54 to 57 beats per minute, no acute ST-T wave changes were noted. No PACs or PVCs, or nonsustained V-tach. Repeat labs were within normal limits. Cardiac markers were negative. MRA of the neck, MRA of the head and MRI of the brain were all within normal limits. Patient's home medications were continued including aspirin. Patient is discharged in stable condition to follow-up with his primary care physician as an outpatient, referral to Dr. Wyman for recurrent symptoms. PHYSICAL EXAMINATION: VITAL SIGNS: On discharge, temperature 97.2, pulse 57 sinus bradycardia, respiratory rate 17, blood pressure 122/71, 98% on room air. GENERAL APPEARANCE: The patient's face is symmetric. Tongue is midline, anicteric, no jaundice, no cyanosis. No pallor or icterus. He speaks in full sentences without dysarthria or word finding difficulties. HEENT: Pupils equally round and reactive to light and accommodation. Extraocular muscles were intact. Normocephalic, atraumatic. Face is symmetric. Tongue is midline. Uvula is midline. Moist mucous membranes. NECK: No JVD, thyromegaly or cervical lymphadenopathy. No pharyngeal erythema. No use of respiratory or accessory muscles. HEART: S1 and S2, sinus bradycardia, nondisplaced point of maximal impulse. No carotid bruits noted. LUNGS: No adventitious breath sounds, clear to auscultation. Air entry is equal bilaterally. Bronchial breath sounds throughout. No wheezing, rales or rhonchi. No kyphoscoliosis. ABDOMEN: Soft, nontender, nondistended. Positive bowel sounds x4 quadrants without guarding or hepatosplenomegaly. EXTREMITIES: No cyanosis, clubbing or pitting edema. NEUROLOGIC: Patient has motor function 5/5 x4 extremities. Gait was normal without ataxia. No word finding difficulties or expressive aphasia. Speech was fluent. Patient has a symmetric face without drooping. Tongue is midline. Uvula is midline. No dysmetria on finger to nose testing. DTRs are intact, 2+ bilateral upper and lower extremities. Patient has no Babinski bilaterally. LABORATORY DATA: White count 7.1, hemoglobin 13, hematocrit 40, platelet count 227,000, sodium 135, potassium 4.6, chloride 102, bicarbonate 28, BUN 12, creatinine 0.88, glucose of 112. Lipid panel: Triglycerides are 84, total cholesterol 159, LDL 71, HDL 88, TSH 1.36. IMAGING STUDIES: Carotid artery MRI, brain MRI, brain MRA, chest x-ray and CT of the head showed no acute abnormalities. TIME SPENT ON DISCHARGE: 30 minutes. [facility]
[2020-04-25 15:07] LABS: ANTINUCLEAR ANTIBODIES DIRECT Negative (Negative)
== END 2020-04-24 11:45 | disposition home or self-care (01) ==
LOC: M ED 13:51 → M ED INP 16:09 → ENRESERV 18:00 → M PCU 18:51
PROVIDERS: ADMIT General Practice; ATTEND General Practice
DX: G45.4 Transient global amnesia (principal); R00.1 Bradycardia, unspecified; I25.10 Atherosclerotic heart disease of native coronary artery without angina pectoris; I25.2 Old myocardial infarction; Z87.891 Personal history of nicotine dependence; Z86.74 Personal history of sudden cardiac arrest; Z95.5 Presence of coronary angioplasty implant and graft; I16.0 Hypertensive urgency; E78.5 Hyperlipidemia, unspecified; K21.9 Gastro-esophageal reflux disease without esophagitis; K44.9 Diaphragmatic hernia without obstruction or gangrene; K63.5 Polyp of colon; F10.10 Alcohol abuse, uncomplicated; Z79.899 Other long term (current) drug therapy; Z79.82 Long term (current) use of aspirin; Z88.3 Allergy status to other anti-infective agents; Z91.040 Latex allergy status; Z91.048 Other nonmedicinal substance allergy status
CPT/HCPCS: 36415; 70450; 70544; 70547; 70551; 71045; 80048; 80053; 80061; 80076; 82550; 82553; 84436; 84439; 84443; 84479; 84484; 85025; 85610; 85652; 85730; 86038; 86140; 86780; 87798; 93005; 93041; 94760; 97161; 99285; J3411

== ENCOUNTER → 2020-09-02 | Outpatient (REF) | payer MEDICARE ==
[~2020-09-02] MED LIST changes: +ATOR80TA59 PO; +LISI10TA22 PO; +MELO15TA28 PO; +OMEP-221 PO
[2020-09-02 17:45] LABS: BASO # 0.1 10^3/uL (0.0-0.2); BASO % 0.8 % (0.0-1.0); EOS # 0.3 10^3/uL (0.0-0.5); EOS % 4.3 % (0.0-3.0); HEMATOCRIT 42.3 % (42.0-52.0); HEMOGLOBIN 14.1 g/dl (13.5-17.5); LYMPH # 1.7 10^3/uL (1.5-5.0); MEAN CORPUSCULAR HEMOGLOBIN 31.5 pg (27.0-33.0); MEAN CORPUSCULAR HGB CONC 33.3 g/dl (32.0-36.5); MEAN CORPUSCULAR VOLUME 94.6 fl (80.0-96.0); MONO # 0.7 10^3/uL (0.0-0.8); MONO % 9.1 % (2.0-8.0); NEUTROPHILS # 4.5 10^3/uL (1.5-8.5); NEUTROPHILS % 62.4 % (36.0-66.0); PLATELET COUNT, AUTOMATED 252 10^3/uL (150-450); RED BLOOD COUNT 4.47 10^6/uL (4.30-6.10); WHITE BLOOD COUNT 7.2 10^3/uL (4.0-10.0)
[2020-09-02 18:16] LABS: ALBUMIN 4.3 GM/DL (3.2-5.2); ALT/SGPT 33 U/L (12-78); BILIRUBIN,TOTAL 0.5 MG/DL (0.2-1.0); BLOOD UREA NITROGEN 8 MG/DL (7-18); CALCIUM LEVEL 9.5 MG/DL (8.8-10.2); CARBON DIOXIDE LEVEL 29 MEQ/L (21-32); CHLORIDE LEVEL 102 MEQ/L (98-107); CHOLESTEROL LEVEL 177 MG/DL (<200); CHOLESTEROL RISK RATIO 2.328 (<5); FREE T4 0.85 NG/DL (0.76-1.46); GLOMERULAR FILTRATION RATE > 60.0 (>49); GLUCOSE, FASTING 97 MG/DL (70-100); HDL CHOLESTEROL 76 MG/DL (>40); LDL CHOLESTEROL 88 MG/DL (<100); NON-HDL-C 101 MG/DL; POTASSIUM SERUM 4.8 MEQ/L (3.5-5.1); SODIUM LEVEL 137 MEQ/L (136-145); TOTAL PROTEIN 7.6 GM/DL (6.4-8.2); TRIGLYCERIDES LEVEL 64 MG/DL (<150)
[2020-09-04 23:07] LABS: PSA TOTAL 0.7 ng/mL (0.0-4.0)
== END ==
LOC: M LABDRWAD 17:08
PROVIDERS: ATTEND Physician Assistant
DX: K21.9 Gastro-esophageal reflux disease without esophagitis (principal); I10 Essential (primary) hypertension; Z12.5 Encounter for screening for malignant neoplasm of prostate

== ENCOUNTER → 2020-12-21 | Outpatient (REF) | payer MEDICARE | LOC: M LAB REF 17:12 | PROVIDERS: ATTEND Physician Assistant | DX: J06.9 Acute upper respiratory infection, unspecified (principal) ==

== ENCOUNTER 2020-12-23 12:52 | Outpatient (CLI) | payer MEDICARE ==
[~2020-12-23] VITALS: Ht 170.2 cm; Wt 77.0 kg
[~2020-12-23 12:52] MED LIST changes: +ALBUTEROL 90 MCG/ACT 8GM HFA INHALER INH PRN; +ALBUTEROL SULFATE 2.5 MG/0.5 ML INH NEB SOLN INH PRN; +CASIRIVIMAB/IMDEVIMAB 1,200 MG in NS 250 ML IV ONE; +EPINEPHrine INJ 1 MG/ML 1ML AMP IM PRN; +NS 1,000 ML IV SCH; +diphenhydrAMINE 50MG/ML VIAL (J1200) IV PRN; +methylPREDNISolone 125MG 2ML VIAL IV PRN
[2020-12-23 14:36] VITALS: BP 149/83
[2020-12-23 15:06] VITALS: BP 152/83
[2020-12-23 15:36] VITALS: BP 164/81
[2020-12-23 16:36] VITALS: BP 183/84
== END 2020-12-23 16:36 | disposition home or self-care (01) ==
LOC: M OPCLI4PR 12:52
PROVIDERS: ATTEND Family Medicine
DX: U07.1 COVID-19 (principal); Z88.1 Allergy status to other antibiotic agents; Z91.040 Latex allergy status

== ENCOUNTER → 2021-01-22 | Outpatient (CLI) | payer MEDICARE ==
[~2021-01-22] MED LIST changes: +ALBU8.5H; -ALBUTEROL 90 MCG/ACT 8GM HFA INHALER INH PRN; -ALBUTEROL SULFATE 2.5 MG/0.5 ML INH NEB SOLN INH PRN; -CASIRIVIMAB/IMDEVIMAB 1,200 MG in NS 250 ML IV ONE; -EPINEPHrine INJ 1 MG/ML 1ML AMP IM PRN; +HYDR-3713 PO; -LISI-898 PO; +LISI5TAB11 PO; +MIRA3350 PO; -NS 1,000 ML IV SCH; -OMEP-221 PO; +OMEP40CA5 PO; -diphenhydrAMINE 50MG/ML VIAL (J1200) IV PRN; -methylPREDNISolone 125MG 2ML VIAL IV PRN
== END ==
LOC: M WUC 14:18
PROVIDERS: ATTEND Physician Assistant
DX: R53.83 Other fatigue (principal); U09.9 Post COVID-19 condition, unspecified; R06.02 Shortness of breath

== ENCOUNTER → 2021-02-16 | Outpatient (REF) | payer MEDICARE ==
[~2021-02-16] MED LIST changes: -ALBU8.5H; -HYDR-3713 PO; -MIRA3350 PO; +OMEP-221 PO; -OMEP40CA5 PO
[2021-02-17 13:23] LABS: BLOOD UREA NITROGEN 12 MG/DL (7-18); CALCIUM LEVEL 9.5 MG/DL (8.8-10.2); CARBON DIOXIDE LEVEL 30 MEQ/L (21-32); CHLORIDE LEVEL 102 MEQ/L (98-107); CREATININE FOR GFR 1.05 MG/DL (0.70-1.30); GLOMERULAR FILTRATION RATE > 60.0 (>49); GLUCOSE, FASTING 100 MG/DL (70-100); POTASSIUM SERUM 5.8 MEQ/L (3.5-5.1); SODIUM LEVEL 137 MEQ/L (136-145)
== END ==
LOC: M LABDRWAD 12:19
PROVIDERS: ATTEND Physician Assistant
DX: I25.10 Atherosclerotic heart disease of native coronary artery without angina pectoris (principal); I10 Essential (primary) hypertension

== ENCOUNTER 2021-02-22 11:06 | Emergency (ER) | payer MEDICARE ==
[~2021-02-22] VITALS: Ht 170.2 cm; Wt 76.4 kg
[~2021-02-22 11:06] MED LIST changes: -OMEP-221 PO; +OMEP40CA5 PO
[2021-02-22 11:25] VITALS: BP 176/86
[2021-02-22] MEDS ORDERED: ALBU8.5H (12:38)
[2021-02-22] MEDS ORDERED: HYDR-3713 PO (12:45)
[2021-02-22] MEDS ORDERED: MIRA3350 PO (12:45)
== END 2021-02-22 12:50 | disposition home or self-care (01) ==
LOC: M ED 11:06
DX: S22.41XA Multiple fractures of ribs, right side, initial encounter for closed fracture (principal); W00.0XXA Fall on same level due to ice and snow, initial encounter; Y92.018 Other place in single-family (private) house as the place of occurrence of the external cause; J90 Pleural effusion, not elsewhere classified; I25.10 Atherosclerotic heart disease of native coronary artery without angina pectoris; K21.9 Gastro-esophageal reflux disease without esophagitis; K44.9 Diaphragmatic hernia without obstruction or gangrene; Z86.73 Personal history of transient ischemic attack (TIA), and cerebral infarction without residual deficits; Z88.1 Allergy status to other antibiotic agents; Z88.8 Allergy status to other drugs, medicaments and biological substances; Z91.040 Latex allergy status; Z91.048 Other nonmedicinal substance allergy status; Z79.899 Other long term (current) drug therapy; Z79.82 Long term (current) use of aspirin

== ENCOUNTER → 2021-02-26 | Outpatient (REF) | payer MEDICARE ==
[~2021-02-26] MED LIST changes: +ALBU8.5H; +HYDR-3713 PO; +MIRA3350 PO
== END ==
LOC: M WUC 19:16
PROVIDERS: ATTEND Physician Assistant
DX: E87.5 Hyperkalemia (principal)

== ENCOUNTER → 2021-03-03 | Outpatient (CLI) | payer MEDICARE | LOC: M WUC 08:59 | PROVIDERS: ATTEND Physician Assistant | DX: S22.41XA Multiple fractures of ribs, right side, initial encounter for closed fracture (principal); X58.XXXA Exposure to other specified factors, initial encounter; Y92.89 Other specified places as the place of occurrence of the external cause ==

== ENCOUNTER → 2021-05-03 | Outpatient (CLI) | payer MEDICARE ==
[2021-05-03 15:51] LABS: BASO # 0.1 10^3/uL (0.0-0.2); BASO % 0.5 % (0.0-1.0); EOS # 0.1 10^3/uL (0.0-0.5); EOS % 0.9 % (0.0-3.0); HEMATOCRIT 42.7 % (42.0-52.0); HEMOGLOBIN 14.5 g/dl (13.5-17.5); LYMPH # 1.5 10^3/uL (1.5-5.0); LYMPH % 15.3 % (24.0-44.0); MEAN CORPUSCULAR HEMOGLOBIN 31.4 pg (27.0-33.0); MEAN CORPUSCULAR VOLUME 92.4 fl (80.0-96.0); NEUTROPHILS # 7.1 10^3/uL (1.5-8.5); NEUTROPHILS % 73.1 % (36.0-66.0); PLATELET COUNT, AUTOMATED 268 10^3/uL (150-450); RED BLOOD COUNT 4.62 10^6/uL (4.30-6.10); WHITE BLOOD COUNT 9.7 10^3/uL (4.0-10.0)
[2021-05-03 16:19] LABS: ALBUMIN 4.6 GM/DL (3.2-5.2); ALT/SGPT 32 U/L (12-78); BILIRUBIN,TOTAL 0.6 MG/DL (0.2-1.0); BLOOD UREA NITROGEN 8 MG/DL (7-18); C REACTIVE PROTEIN QUANTITATIV 0.41 MG/DL (0.00-0.30); CALCIUM LEVEL 9.9 MG/DL (8.8-10.2); CARBON DIOXIDE LEVEL 32 MEQ/L (21-32); CHLORIDE LEVEL 103 MEQ/L (98-107); GLOMERULAR FILTRATION RATE > 60.0 (>49); GLUCOSE, FASTING 107 MG/DL (70-100); POTASSIUM SERUM 4.3 MEQ/L (3.5-5.1); SODIUM LEVEL 140 MEQ/L (136-145); TOTAL PROTEIN 7.8 GM/DL (6.4-8.2)
[2021-05-03 16:22] LABS: ERYTHROCYTE SEDIMENTATION RATE 5 mm/hr (0-20)
[2021-05-03 16:28] LABS: FOLATE 23.7 NG/ML; TOTAL 25(OH) VITAMIN D 14.8 NG/ML (30.0-100.0); VITAMIN B12 LEVEL 262 PG/ML
[2021-05-05 20:08] LABS: ANA (HEP2) Negative (.)
== END ==
LOC: M WUC 13:43
PROVIDERS: ATTEND Physician Assistant
DX: M79.671 Pain in right foot (principal); G45.4 Transient global amnesia; M19.071 Primary osteoarthritis, right ankle and foot; Z79.899 Other long term (current) drug therapy

== ENCOUNTER → 2021-06-18 | Outpatient (CLI) | payer MEDICARE | LOC: M PLARAD 14:15 | PROVIDERS: ATTEND Physician Assistant | DX: G45.4 Transient global amnesia (principal); Z86.73 Personal history of transient ischemic attack (TIA), and cerebral infarction without residual deficits ==

== ENCOUNTER → 2021-08-27 | Outpatient (CLI) | payer MEDICARE ==
[2021-08-27 10:26] LABS: BASO # 0.1 10^3/uL (0.0-0.2); BASO % 0.7 % (0.0-1.0); EOS # 0.5 10^3/uL (0.0-0.5); EOS % 7.4 % (0.0-3.0); HEMATOCRIT 43.7 % (42.0-52.0); HEMOGLOBIN 14.8 g/dl (13.5-17.5); LYMPH # 1.8 10^3/uL (1.5-5.0); LYMPH % 25.1 % (24.0-44.0); MEAN CORPUSCULAR HEMOGLOBIN 31.2 pg (27.0-33.0); MEAN CORPUSCULAR HGB CONC 33.9 g/dl (32.0-36.5); MEAN CORPUSCULAR VOLUME 92.2 fl (80.0-96.0); MONO # 0.7 10^3/uL (0.0-0.8); MONO % 10.3 % (2.0-8.0); NEUTROPHILS % 56.2 % (36.0-66.0); PLATELET COUNT, AUTOMATED 263 10^3/uL (150-450); RED BLOOD COUNT 4.74 10^6/uL (4.30-6.10); WHITE BLOOD COUNT 7.2 10^3/uL (4.0-10.0)
[2021-08-27 13:10] LABS: ALBUMIN 4.2 GM/DL (3.2-5.2); ALT/SGPT 28 U/L (12-78); BILIRUBIN,TOTAL 0.5 MG/DL (0.2-1.0); BLOOD UREA NITROGEN 14 MG/DL (7-18); CALCIUM LEVEL 9.2 MG/DL (8.8-10.2); CARBON DIOXIDE LEVEL 29 MEQ/L (21-32); CHLORIDE LEVEL 100 MEQ/L (98-107); CHOLESTEROL LEVEL 175 MG/DL (<200); CHOLESTEROL RISK RATIO 3.431 (<5); CREATININE FOR GFR 1.07 MG/DL (0.70-1.30); GLOMERULAR FILTRATION RATE > 60.0 (>49); GLUCOSE, FASTING 95 MG/DL (70-100); HDL CHOLESTEROL 51 MG/DL (>40); LDL CHOLESTEROL 72 MG/DL (<100); NON-HDL-C 124 MG/DL; POTASSIUM SERUM 4.8 MEQ/L (3.5-5.1); SODIUM LEVEL 134 MEQ/L (136-145); TOTAL PROTEIN 7.7 GM/DL (6.4-8.2); TRIGLYCERIDES LEVEL 262 MG/DL (<150)
[2021-08-27 13:11] LABS: TOTAL 25(OH) VITAMIN D 70.7 NG/ML (30.0-100.0)
[2021-08-27 13:12] LABS: VITAMIN B12 LEVEL 432 PG/ML
[2021-08-27 13:13] LABS: FOLATE 8.8 NG/ML
[2021-08-30 23:07] LABS: PSA TOTAL 0.6 ng/mL (0.0-4.0)
== END ==
LOC: M WUC 08:01
PROVIDERS: ATTEND Nurse Practitioner Adult Health
DX: I10 Essential (primary) hypertension (principal); E78.5 Hyperlipidemia, unspecified; E55.9 Vitamin D deficiency, unspecified; D51.9 Vitamin B12 deficiency anemia, unspecified; Z12.5 Encounter for screening for malignant neoplasm of prostate; Z79.899 Other long term (current) drug therapy

== ENCOUNTER → 2021-12-02 | Outpatient (CLI) | payer MEDICARE ==
[2021-12-02 10:06] LABS: BASO % 0.5 % (0.0-1.0); EOS # 0.3 10^3/uL (0.0-0.5); HEMATOCRIT 43.8 % (42.0-52.0); HEMOGLOBIN 14.6 g/dl (13.5-17.5); LYMPH # 1.9 10^3/uL (1.5-5.0); LYMPH % 25.4 % (24.0-44.0); MEAN CORPUSCULAR HEMOGLOBIN 31.5 pg (27.0-33.0); MEAN CORPUSCULAR HGB CONC 33.3 g/dl (32.0-36.5); MEAN CORPUSCULAR VOLUME 94.4 fl (80.0-96.0); MONO # 0.8 10^3/uL (0.0-0.8); MONO % 11.3 % (2.0-8.0); NEUTROPHILS # 4.3 10^3/uL (1.5-8.5); NEUTROPHILS % 58.4 % (36.0-66.0); PLATELET COUNT, AUTOMATED 229 10^3/uL (150-450); RED BLOOD COUNT 4.64 10^6/uL (4.30-6.10); WHITE BLOOD COUNT 7.4 10^3/uL (4.0-10.0)
[2021-12-02 11:17] LABS: ALBUMIN 4.1 GM/DL (3.2-5.2); ALT/SGPT 28 U/L (12-78); BILIRUBIN,TOTAL 0.6 MG/DL (0.2-1.0); BLOOD UREA NITROGEN 13 MG/DL (7-18); CALCIUM LEVEL 9.1 MG/DL (8.8-10.2); CARBON DIOXIDE LEVEL 29 MEQ/L (21-32); CHLORIDE LEVEL 107 MEQ/L (98-107); CHOLESTEROL LEVEL 174 MG/DL (<200); CHOLESTEROL RISK RATIO 2.597 (<5); CREATININE FOR GFR 1.03 MG/DL (0.70-1.30); FREE T4 0.89 NG/DL (0.76-1.46); GLOMERULAR FILTRATION RATE > 60.0 (>49); GLUCOSE, FASTING 116 MG/DL (70-100); HDL CHOLESTEROL 67 MG/DL (>40); LDL CHOLESTEROL 91 MG/DL (<100); NON-HDL-C 107 MG/DL; POTASSIUM SERUM 4.8 MEQ/L (3.5-5.1); SODIUM LEVEL 140 MEQ/L (136-145); THYROID STIMULATING HORMONE 0.974 uIU/ML (0.358-3.740); TOTAL PROTEIN 7.5 GM/DL (6.4-8.2); TRIGLYCERIDES LEVEL 81 MG/DL (<150)
[2021-12-02 11:51] LABS: FOLATE 19.3 NG/ML (>5.4); TOTAL 25(OH) VITAMIN D 41.2 NG/ML (30.0-100.0); VITAMIN B12 LEVEL 389 PG/ML (247-911)
[2021-12-03 15:09] LABS: TESTOSTERONE FREE (DIRECT) 9.9 pg/mL (6.6-18.1)
== END ==
LOC: M WUC 08:01
PROVIDERS: ATTEND Nurse Practitioner Adult Health
DX: E78.5 Hyperlipidemia, unspecified (principal); E55.9 Vitamin D deficiency, unspecified; D51.9 Vitamin B12 deficiency anemia, unspecified; I10 Essential (primary) hypertension

== ENCOUNTER → 2022-01-04 | Outpatient (CLI) | payer MEDICARE ==
[2022-01-04 14:45] LABS: BASO # 0.1 10^3/uL (0.0-0.2); BASO % 0.5 % (0.0-1.0); EOS # 0.1 10^3/uL (0.0-0.5); EOS % 1.2 % (0.0-3.0); HEMATOCRIT 47.1 % (42.0-52.0); HEMOGLOBIN 15.5 g/dl (13.5-17.5); MEAN CORPUSCULAR HEMOGLOBIN 31.3 pg (27.0-33.0); MEAN CORPUSCULAR HGB CONC 32.9 g/dl (32.0-36.5); MEAN CORPUSCULAR VOLUME 95.2 fl (80.0-96.0); MONO # 1.2 10^3/uL (0.0-0.8); MONO % 12.4 % (2.0-8.0); NEUTROPHILS # 6.5 10^3/uL (1.5-8.5); NEUTROPHILS % 65.6 % (36.0-66.0); PLATELET COUNT, AUTOMATED 261 10^3/uL (150-450); RED BLOOD COUNT 4.95 10^6/uL (4.30-6.10); WHITE BLOOD COUNT 9.9 10^3/uL (4.0-10.0)
[2022-01-04 15:11] LABS: CARBON DIOXIDE LEVEL 29 MMOL/L (20-31); CHLORIDE LEVEL 100 MMOL/L (98-107); POTASSIUM SERUM 4.4 MMOL/L (3.5-5.1); SODIUM LEVEL 137 MMOL/L (136-145)
[2022-01-04 15:12] LABS: ALBUMIN 4.6 G/DL (3.2-5.2)
[2022-01-04 15:16] LABS: ALKALINE PHOSPHATASE 68 U/L (46-116)
[2022-01-04 15:17] LABS: BLOOD UREA NITROGEN 13 MG/DL (9-23); CALCIUM LEVEL 9.7 MG/DL (8.3-10.6); GLUCOSE, FASTING 111 MG/DL (74-106)
[2022-01-04 15:19] LABS: ALT/SGPT 30 U/L (7.0-40); AST/SGOT 33 U/L (<34); BILIRUBIN,TOTAL 0.8 MG/DL (0.3-1.2); CREATININE FOR GFR 1.01 MG/DL (0.70-1.30); GLOMERULAR FILTRATION RATE > 60.0 (>49); TOTAL PROTEIN 7.6 G/DL (5.7-8.2)
[2022-01-04 15:48] LABS: ERYTHROCYTE SEDIMENTATION RATE 3 mm/hr (0-20)
== END ==
LOC: M WUC 09:41
PROVIDERS: ATTEND Physician Assistant
DX: G45.4 Transient global amnesia (principal)

== ENCOUNTER → 2022-04-01 | Outpatient (CLI) | payer MEDICARE ==
[2022-04-09 09:09] LABS: VITAMIN B1 LEVEL WHOLE BLOOD 152.6 nmol/L (66.5-200.0); VITAMIN B6,PYRIDOXAL PHOSPHATE 6.5 ug/L (3.4-65.2); VITAMIN E(ALPHA TOCOPHEROL) 8.9 mg/L (9.0-29.0); VITAMIN E(GAMMA TOCOPHEROL) 1.7 mg/L (0.5-4.9)
== END ==
LOC: M WUC 07:59
PROVIDERS: ATTEND Psychiatry & Neurology Neurology
DX: E03.9 Hypothyroidism, unspecified (principal); E51.9 Thiamine deficiency, unspecified; R41.3 Other amnesia

== ENCOUNTER → 2022-06-06 | Outpatient (CLI) | payer MEDICARE ==
[2022-06-06 13:21] LABS: ALBUMIN 3.6 G/DL (3.2-5.2); ALKALINE PHOSPHATASE 71 U/L (46-116); ALT/SGPT 19 U/L (7.0-40); AST/SGOT 30 U/L (<34); BILIRUBIN,TOTAL 0.3 MG/DL (0.3-1.2); BLOOD UREA NITROGEN 14 MG/DL (9-23); CALCIUM LEVEL 9.1 MG/DL (8.3-10.6); CARBON DIOXIDE LEVEL 31 MMOL/L (20-31); CHLORIDE LEVEL 106 MMOL/L (98-107); CHOLESTEROL LEVEL 153 MG/DL (<200); CHOLESTEROL RISK RATIO 3.15 (<5); CREATININE FOR GFR 1.07 MG/DL (0.70-1.30); GLOMERULAR FILTRATION RATE > 60.0 (>49); GLUCOSE, FASTING 105 MG/DL (74-106); HDL CHOLESTEROL 48.5 MG/DL (>40); LDL CHOLESTEROL 86.5 MG/DL (<100); NON-HDL-C 104.5 MG/DL; POTASSIUM SERUM 5.3 MMOL/L (3.5-5.1); SODIUM LEVEL 140 MMOL/L (136-145); TOTAL PROTEIN 6.6 G/DL (5.7-8.2); TRIGLYCERIDES LEVEL 90 MG/DL (<150)
[2022-06-06 13:25] LABS: BASO # 0.1 10^3/uL (0.0-0.2); BASO % 0.8 % (0.0-1.0); EOS # 0.3 10^3/uL (0.0-0.5); EOS % 3.8 % (0.0-3.0); HEMATOCRIT 43.1 % (42.0-52.0); HEMOGLOBIN 14.3 g/dl (13.5-17.5); LYMPH % 25.6 % (24.0-44.0); MEAN CORPUSCULAR HEMOGLOBIN 30.8 pg (27.0-33.0); MEAN CORPUSCULAR HGB CONC 33.2 g/dl (32.0-36.5); MEAN CORPUSCULAR VOLUME 92.7 fl (80.0-96.0); MONO # 0.8 10^3/uL (0.0-0.8); MONO % 10.3 % (2.0-8.0); NEUTROPHILS # 4.7 10^3/uL (1.5-8.5); NEUTROPHILS % 59.1 % (36.0-66.0); PLATELET COUNT, AUTOMATED 299 10^3/uL (150-450); RED BLOOD COUNT 4.65 10^6/uL (4.30-6.10); WHITE BLOOD COUNT 7.9 10^3/uL (4.0-10.0)
[2022-06-06 13:26] LABS: THYROID STIMULATING HORMONE 0.675 uIU/ML (0.55-4.78)
[2022-06-06 13:27] LABS: FREE T4 0.92 NG/DL (0.89-1.76)
== END ==
LOC: M LABDRWAD 07:33
PROVIDERS: ATTEND Family Medicine
DX: F33.0 Major depressive disorder, recurrent, mild (principal); I10 Essential (primary) hypertension

== ENCOUNTER → 2022-06-07 | Outpatient (CLI) | payer MEDICARE ==
[2022-06-07 16:29] LABS: C REACTIVE PROTEIN QUANTITATIV < 0.40 MG/DL (<1.0)
[2022-06-07 16:30] LABS: CK-MB VALUE MASS < 1.0 NG/ML (<3.6); CPK CREATINE PHOSPHOKINASE 185 U/L (46-171); MB/CK RELATIVE INDEX 0.54 (< OR =4)
[2022-06-09 17:08] LABS: EBV AB TO NUCLEAR ANTIGEN 59.1 U/mL (0.0-17.9); EBV VIRAL CAPSID AG IgG >600.0 U/mL (0.0-17.9); EBV VIRAL CAPSID AG IgM <36.0 U/mL (0.0-35.9)
== END ==
LOC: M PLAIMG 14:26
PROVIDERS: ATTEND Nurse Practitioner Adult Health
DX: R07.9 Chest pain, unspecified (principal); M79.10 Myalgia, unspecified site; I70.0 Atherosclerosis of aorta; M48.14 Ankylosing hyperostosis [Forestier], thoracic region

== ENCOUNTER → 2022-06-20 | Outpatient (REF) | payer MEDICARE | LOC: M LABDRWAD 15:53 | PROVIDERS: ATTEND Nurse Practitioner Adult Health | DX: M94.0 Chondrocostal junction syndrome [Tietze] (principal) ==

== ENCOUNTER → 2022-06-21 | Outpatient (CLI) | payer MEDICARE ==
[~2022-06-21] MED LIST changes: +ISOVUE-370 76% 100ML VIAL As Ordered ONE
== END ==
LOC: M RAD 13:53
PROVIDERS: ATTEND Nurse Practitioner Adult Health
DX: R06.02 Shortness of breath (principal); R07.9 Chest pain, unspecified
CPT/HCPCS: 71275; Q9967

== ENCOUNTER → 2022-07-19 | Outpatient (CLI) | payer MEDICARE ==
[~2022-07-19] MED LIST changes: +CITR500T PO; +CYAN500T14 PO; +D3-5CAP PO; +DICL1GEL3 TOP; +IBUP-1022 PO; -ISOVUE-370 76% 100ML VIAL As Ordered ONE
[2022-07-19 10:11] LABS: PLATELET COUNT, AUTOMATED 252 10^3/uL (150-450)
[2022-07-19 10:24] LABS: INR 0.94; PARTIAL THROMBOPLASTIN TIME 26.1 SECONDS (24.8-34.2); PROTHROMBIN TIME 12.8 SECONDS (12.5-14.5)
== END ==
LOC: M PLALAB 07:12
PROVIDERS: ATTEND Internal Medicine Pulmonary Disease
DX: R91.8 Other nonspecific abnormal finding of lung field (principal)

== ENCOUNTER → 2022-07-22 | Outpatient (CLI) | payer MEDICARE ==
[~2022-07-22] MED LIST changes: +LIDOCAINE 1% MDV 20ML VIAL As Ordered ONE
[2022-07-22 09:15] VITALS: TEMP 96.8
[2022-07-22 13:20] VITALS: BP 180/94; O2SAT 99
== END ==
LOC: M IRPRO 09:06
PROVIDERS: ATTEND Internal Medicine Pulmonary Disease
DX: R91.8 Other nonspecific abnormal finding of lung field (principal)

== ENCOUNTER → 2022-10-20 | Outpatient (REF) | payer MEDICARE ==
[~2022-10-20] MED LIST changes: +DICL100G10 TOP; -DICL1GEL3 TOP; -LIDOCAINE 1% MDV 20ML VIAL As Ordered ONE
== END ==
LOC: M SFHCDERM 12:24
PROVIDERS: ATTEND Nurse Practitioner Family
DX: D18.01 Hemangioma of skin and subcutaneous tissue (principal); L57.8 Other skin changes due to chronic exposure to nonionizing radiation; L57.0 Actinic keratosis

== ENCOUNTER → 2022-11-28 | Outpatient (CLI) | payer MEDICARE ==
[2022-11-28 10:45] LABS: BASO # 0.1 10^3/uL (0.0-0.2); BASO % 0.8 % (0.0-1.0); EOS # 0.4 10^3/uL (0.0-0.5); EOS % 4.8 % (0.0-3.0); HEMATOCRIT 43.1 % (42.0-52.0); HEMOGLOBIN 14.8 g/dl (13.5-17.5); LYMPH # 1.8 10^3/uL (1.5-5.0); LYMPH % 23.9 % (24.0-44.0); MEAN CORPUSCULAR HGB CONC 34.3 g/dl (32.0-36.5); MEAN CORPUSCULAR VOLUME 93.1 fl (80.0-96.0); MONO # 0.8 10^3/uL (0.0-0.8); MONO % 9.9 % (2.0-8.0); NEUTROPHILS # 4.5 10^3/uL (1.5-8.5); NEUTROPHILS % 60.1 % (36.0-66.0); PLATELET COUNT, AUTOMATED 263 10^3/uL (150-450); RED BLOOD COUNT 4.63 10^6/uL (4.30-6.10); WHITE BLOOD COUNT 7.5 10^3/uL (4.0-10.0)
[2022-11-29 04:54] LABS: THYROID STIMULATING HORMONE 1.883 uIU/ML (0.55-4.78); TOTAL 25(OH) VITAMIN D 49.4 NG/ML (20.0-100.0)
[2022-11-29 04:55] LABS: FOLATE 16.97 NG/ML (>5.4)
[2022-11-29 04:56] LABS: VITAMIN B12 LEVEL 1410 PG/ML (211-911)
[2022-11-29 04:57] LABS: FREE T4 1.09 NG/DL (0.89-1.76)
[2022-11-29 05:03] LABS: ALBUMIN 4.1 G/DL (3.2-5.2); ALKALINE PHOSPHATASE 73 U/L (46-116); ALT/SGPT 21 U/L (7.0-40); AST/SGOT 23 U/L (<34); BILIRUBIN,TOTAL 0.4 MG/DL (0.3-1.2); BLOOD UREA NITROGEN 12 MG/DL (9-23); CALCIUM LEVEL 9.7 MG/DL (8.3-10.6); CARBON DIOXIDE LEVEL 26 MMOL/L (20-31); CHLORIDE LEVEL 104 MMOL/L (98-107); CHOLESTEROL LEVEL 183 MG/DL (<200); CHOLESTEROL RISK RATIO 3.38 (<5); CREATININE FOR GFR 1.02 MG/DL (0.70-1.30); GLOMERULAR FILTRATION RATE > 60.0 (>49); GLUCOSE, FASTING 95 MG/DL (74-106); HDL CHOLESTEROL 54.1 MG/DL (>40); LDL CHOLESTEROL 82.3 MG/DL (<100); NON-HDL-C 128.9 MG/DL; POTASSIUM SERUM 4.3 MMOL/L (3.5-5.1); SODIUM LEVEL 139 MMOL/L (136-145); TOTAL PROTEIN 7.3 G/DL (5.7-8.2); TRIGLYCERIDES LEVEL 233 MG/DL (<150)
[2022-11-29 23:08] LABS: PSA TOTAL 0.6 ng/mL (0.0-4.0)
== END ==
LOC: M PLALAB 07:07
PROVIDERS: ATTEND Nurse Practitioner Adult Health
DX: I10 Essential (primary) hypertension (principal); R97.20 Elevated prostate specific antigen [PSA]

== ENCOUNTER → 2022-12-12 | Outpatient (CLI) | payer MEDICARE ==
[~2022-12-12] MED LIST changes: +ISOVUE-370 76% 100ML VIAL As Ordered ONE
== END ==
LOC: M RAD 07:34
PROVIDERS: ATTEND Nurse Practitioner Adult Health
DX: R91.1 Solitary pulmonary nodule (principal); K76.0 Fatty (change of) liver, not elsewhere classified
CPT/HCPCS: 71260; Q9967

== ENCOUNTER → 2023-03-09 | Outpatient (CLI) | payer MEDICARE ==
[~2023-03-09] MED LIST changes: -ISOVUE-370 76% 100ML VIAL As Ordered ONE
== END ==
LOC: M PLAIMG 07:54
PROVIDERS: ATTEND Physician Assistant
DX: R06.02 Shortness of breath (principal); I35.8 Other nonrheumatic aortic valve disorders

== ENCOUNTER → 2023-08-14 | Outpatient (CLI) | payer MEDICARE ==
[2023-08-14 10:45] LABS: BASO # 0.1 10^3/uL (0.0-0.2); BASO % 0.7 % (0.0-1.0); EOS # 0.2 10^3/uL (0.0-0.5); EOS % 3.1 % (0.0-3.0); HEMATOCRIT 41.7 % (42.0-52.0); HEMOGLOBIN 14.2 g/dl (13.5-17.5); LYMPH # 1.5 10^3/uL (1.5-5.0); LYMPH % 20.2 % (24.0-44.0); MEAN CORPUSCULAR HEMOGLOBIN 32.2 pg (27.0-33.0); MEAN CORPUSCULAR HGB CONC 34.1 g/dl (32.0-36.5); MEAN CORPUSCULAR VOLUME 94.6 fl (80.0-96.0); MONO # 0.7 10^3/uL (0.0-0.8); MONO % 9.7 % (2.0-8.0); PLATELET COUNT, AUTOMATED 255 10^3/uL (150-450); RED BLOOD COUNT 4.41 10^6/uL (4.30-6.10); WHITE BLOOD COUNT 7.5 10^3/uL (4.0-10.0)
[2023-08-14 10:50] LABS: ALKALINE PHOSPHATASE 65 U/L (46-116); ALT/SGPT 26 U/L (7.0-40); AST/SGOT 21 U/L (<34); BILIRUBIN,TOTAL 0.5 MG/DL (0.3-1.2); BLOOD UREA NITROGEN 10 MG/DL (9-23); CALCIUM LEVEL 9.4 MG/DL (8.3-10.6); CARBON DIOXIDE LEVEL 28 MMOL/L (20-31); CHLORIDE LEVEL 102 MMOL/L (98-107); CHOLESTEROL LEVEL 194 MG/DL (<200); CHOLESTEROL RISK RATIO 3.47 (<5); CREATININE FOR GFR 1.04 MG/DL (0.70-1.30); FREE T4 1.08 NG/DL (0.89-1.76); GLOMERULAR FILTRATION RATE > 60.0 (>49); GLUCOSE, FASTING 94 MG/DL (74-106); HDL CHOLESTEROL 55.8 MG/DL (>40); LDL CHOLESTEROL 91.2 MG/DL (<100); NON-HDL-C 138.2 MG/DL; POTASSIUM SERUM 5.3 MMOL/L (3.5-5.1); SODIUM LEVEL 135 MMOL/L (136-145); TOTAL PROTEIN 6.9 G/DL (5.7-8.2); TRIGLYCERIDES LEVEL 235 MG/DL (<150)
[2023-08-14 11:41] LABS: FOLATE 13.8 NG/ML (>5.4); THYROID STIMULATING HORMONE 1.175 uIU/ML (0.55-4.78); TOTAL 25(OH) VITAMIN D 103.6 NG/ML (20.0-100.0); VITAMIN B12 LEVEL 1840 PG/ML (211-911)
== END ==
LOC: M PLALAB 06:59
PROVIDERS: ATTEND Nurse Practitioner Adult Health
DX: E78.5 Hyperlipidemia, unspecified (principal); D51.9 Vitamin B12 deficiency anemia, unspecified; E55.9 Vitamin D deficiency, unspecified; I25.10 Atherosclerotic heart disease of native coronary artery without angina pectoris; I10 Essential (primary) hypertension

== ENCOUNTER 2023-11-09 08:23 | Emergency (ER) | payer MEDICARE ==
[~2023-11-09] VITALS: Ht 175.3 cm; Wt 80.9 kg
[~2023-11-09 08:23] MED LIST changes: -ALBU8.5H; +ALBU8.5H INH
[2023-11-09] MEDS: ETOMIDATE INJ 20MG/10ML VIAL IV ONE (08:36)
[2023-11-09] MEDS: SUCCINYLCHOLINE INJ 200MG/10ML VIAL IV ONE (08:39)
[2023-11-09] MEDS ORDERED: MIDAZOLAM 100MG/100ML-0.9%NACL IV ONE (08:43)
[2023-11-09] MEDS: LIDOCAINE 2% 5ML JELLY UROJET TOP ONE (08:45)
[2023-11-09] MEDS: MIDAZOLAM 100MG/100ML-0.9%NACL 100 MG in IV 1 EA IV SCH (08:45)
[2023-11-09] MEDS: MIDAZOLAM INJ 2MG/2ML VIAL IV ONE (08:55)
[2023-11-09 09:00] LABS: ABG O2 SATURATION 99.4 % (95.0-99.0)
[2023-11-09 09:00] LABS: BASO # 0.1 10^3/uL (0.0-0.2); BASO % 0.5 % (0.0-1.0); EOS # 0.1 10^3/uL (0.0-0.5); EOS % 0.6 % (0.0-3.0); HEMATOCRIT 45.5 % (42.0-52.0); HEMOGLOBIN 14.4 g/dl (13.5-17.5); LYMPH # 2.1 10^3/uL (1.5-5.0); LYMPH % 12.5 % (24.0-44.0); MEAN CORPUSCULAR HEMOGLOBIN 32.1 pg (27.0-33.0); MEAN CORPUSCULAR HGB CONC 31.6 g/dl (32.0-36.5); MEAN CORPUSCULAR VOLUME 101.3 fl (80.0-96.0); MONO # 1.2 10^3/uL (0.0-0.8); MONO % 7.5 % (2.0-8.0); NEUTROPHILS # 12.6 10^3/uL (1.5-8.5); NEUTROPHILS % 76.8 % (36.0-66.0); PLATELET COUNT, AUTOMATED 282 10^3/uL (150-450); RED BLOOD COUNT 4.49 10^6/uL (4.30-6.10); WHITE BLOOD COUNT 16.5 10^3/uL (4.0-10.0)
[2023-11-09 09:02] LABS: ABG BASE EXCESS -17.1 (-2.0-2.0); ABG HCO3 12.6 MMOL/L (22.0-26.0); ABG PARTIAL PRESSURE CO2 43.7 mmHg (35.0-45.0); ABG PARTIAL PRESSURE O2 242.8 mmHg (75.0-100.0); ABG TOTAL CO2 13.9 MMOL/L (23.0-31.0)
[2023-11-09] MEDS ORDERED: ASPIRIN 325 MG TAB XX STA (09:03)
[2023-11-09 09:04] LABS: ABG pH (ARTERIAL) 7.077 UNITS (7.350-7.450)
[2023-11-09] MEDS ORDERED: fentaNYL 100 MCG/2 ML INJECTION As Ordered ONE (09:06)
[2023-11-09] MEDS: MIDAZOLAM INJ 2MG/2ML VIAL IV STA ×3 (09:11→10:16)
[2023-11-09] MEDS: fentaNYL 100 MCG/2 ML INJECTION IV ONE (09:11)
[2023-11-09] MEDS: ASPIRIN 300 MG SUPP PR ONE (09:22)
[2023-11-09] MEDS ORDERED: FENTANYL DRIP LOCK BOX KEY 1 EACH XX PRN (09:25)
[2023-11-09 09:27] LABS: CK-MB VALUE MASS 5.8 NG/ML (<3.6)
[2023-11-09 09:28] LABS: BLOOD UREA NITROGEN 10 MG/DL (9-23); CALCIUM LEVEL 9.9 MG/DL (8.3-10.6); CARBON DIOXIDE LEVEL 19 MMOL/L (20-31); CHLORIDE LEVEL 97 MMOL/L (98-107); CPK CREATINE PHOSPHOKINASE 291 U/L (46-171); GLOMERULAR FILTRATION RATE > 60.0 (>49); GLUCOSE, FASTING 168 MG/DL (74-106); MAGNESIUM LEVEL 2.4 MG/DL (1.8-2.4); MB/CK RELATIVE INDEX 1.99 (< OR =4); POTASSIUM SERUM 4.1 MMOL/L (3.5-5.1); SODIUM LEVEL 132 MMOL/L (136-145)
[2023-11-09] MEDS: fentaNYL CITRATE/NaCl 1,000 MCG in IV 1 EA IV SCH (09:30)
[2023-11-09] MEDS ORDERED: ISOVUE-370 76% 100ML VIAL As Ordered ONE (09:35)
[2023-11-09 10:13] LABS: CK-MB VALUE MASS 6.2 NG/ML (<3.6)
[2023-11-09 10:19] LABS: MB/CK RELATIVE INDEX 1.58 (< OR =4)
[2023-11-09] MEDS: propofoL 1,000 MG in IV 1 EA IV SCH (10:22)
[2023-11-09] MEDS: HEPARIN SOD (PORCINE) 5000UNITS/ML 1ML VIAL/SYRINGE IV ONE (10:31)
[2023-11-09] MEDS: HEPARIN DRIP 25,000 UNITS in IV 1 EA IV SCH (10:33)
[2023-11-09 10:41] VITALS: BP 154/87; TEMP 96.1; O2SAT 98
[2023-11-09] MEDS ORDERED: LISI20TA33 PO (10:42)
[2023-11-09] MEDS ORDERED: ADVA115A INH (10:42)
[2023-11-09] MEDS ORDERED: PRAV20TA2 PO (10:42)
[2023-11-09] MEDS ORDERED: D200CAP3 PO (10:42)
[2023-11-09] MEDS ORDERED: TRIA0.022 TOP (10:42)
[2023-11-09] MEDS ORDERED: MELO7.5T35 PO (10:42)
[2023-11-09] MEDS ORDERED: QC F0.52 PO (10:42)
[2023-11-09] MEDS ORDERED: SYMB80INH INH (10:42)
[2023-11-09] MEDS ORDERED: TRAZ-252 PO (10:42)
[2023-11-09] MEDS ORDERED: CLOB0.057 TOP (10:42)
[2023-11-09] MEDS ORDERED: THIA50TA4 PO (10:42)
[2023-11-09] MEDS ORDERED: CYAN-1 PO (10:46)
[2023-11-09] MEDS ORDERED: B-1100TA2 PO (10:46)
[2023-11-09] MEDS ORDERED: HOME MED LIST COMPLETE! XX SCH (10:50)
== END 2023-11-09 10:44 | disposition short-term general hospital (02) ==
LOC: M ED 08:23
DX: I24.9 Acute ischemic heart disease, unspecified (principal); I46.9 Cardiac arrest, cause unspecified; I10 Essential (primary) hypertension; Z87.891 Personal history of nicotine dependence; Z88.8 Allergy status to other drugs, medicaments and biological substances; Z95.5 Presence of coronary angioplasty implant and graft; Z79.82 Long term (current) use of aspirin; Z79.899 Other long term (current) drug therapy; Z79.51 Long term (current) use of inhaled steroids
CPT/HCPCS: 36600; 51702; 70450; 71045; 71275; 74177; 80047; 80048; 82550; 82553; 82803; 83735; 84484; 85025; 85730; 93005; 93041; 94760; 96365; 96366; 96367; 96375; 99291; 99292; J0330; J2250; J2251; J3010; Q9967

== ENCOUNTER → 2023-12-12 | Outpatient (REF) | payer MEDICARE ==
[~2023-12-12] MED LIST changes: +ADVA115A INH; +B-1100TA2 PO; +CLOB0.057 TOP; +CYAN-1 PO; +D200CAP3 PO; +LISI20TA33 PO; +MELO7.5T35 PO; +PRAV20TA2 PO; +QC F0.52 PO; +SYMB80INH INH; +THIA50TA4 PO; +TRAZ-252 PO; +TRIA0.022 TOP
[2023-12-12 11:24] LABS: ALBUMIN 3.5 G/DL (3.2-5.2); ALKALINE PHOSPHATASE 208 U/L (40-129); ALT/SGPT 31 U/L (7.0-40); AST/SGOT 21 U/L (<34); BILIRUBIN,TOTAL 0.6 MG/DL (0.3-1.2); BLOOD UREA NITROGEN 12 MG/DL (9-23); CALCIUM LEVEL 9.6 MG/DL (8.3-10.6); CARBON DIOXIDE LEVEL 27 MMOL/L (20-31); CHLORIDE LEVEL 104 MMOL/L (98-107); CHOLESTEROL LEVEL 130 MG/DL (<200); CREATININE FOR GFR 0.87 MG/DL (0.70-1.30); GLOMERULAR FILTRATION RATE > 60.0 (>49); GLUCOSE, FASTING 96 MG/DL (74-106); HDL CHOLESTEROL 44.8 MG/DL (>40); LDL CHOLESTEROL 64.8 MG/DL (<100); NON-HDL-C 85.2 MG/DL; POTASSIUM SERUM 4.3 MMOL/L (3.5-5.1); SODIUM LEVEL 139 MMOL/L (136-145); TOTAL PROTEIN 7.1 G/DL (5.7-8.2); TRIGLYCERIDES LEVEL 102 MG/DL (<150)
== END ==
LOC: M LAB REF 10:12
PROVIDERS: ATTEND Physician Assistant
DX: I25.10 Atherosclerotic heart disease of native coronary artery without angina pectoris (principal); I10 Essential (primary) hypertension; E78.00 Pure hypercholesterolemia, unspecified

== ENCOUNTER → 2023-12-12 | Outpatient (REF) | payer MEDICARE ==
[2023-12-12 10:53] LABS: BASO % 0.5 % (0.0-1.0); EOS # 0.3 10^3/uL (0.0-0.5); EOS % 4.1 % (0.0-3.0); HEMATOCRIT 37.5 % (42.0-52.0); HEMOGLOBIN 12.6 g/dl (13.5-17.5); LYMPH % 13.9 % (24.0-44.0); MEAN CORPUSCULAR HEMOGLOBIN 32.6 pg (27.0-33.0); MEAN CORPUSCULAR HGB CONC 33.6 g/dl (32.0-36.5); MEAN CORPUSCULAR VOLUME 97.2 fl (80.0-96.0); MONO # 0.7 10^3/uL (0.0-0.8); MONO % 9.9 % (2.0-8.0); NEUTROPHILS # 5.3 10^3/uL (1.5-8.5); NEUTROPHILS % 71.2 % (36.0-66.0); PLATELET COUNT, AUTOMATED 307 10^3/uL (150-450); RED BLOOD COUNT 3.86 10^6/uL (4.30-6.10); WHITE BLOOD COUNT 7.4 10^3/uL (4.0-10.0)
[2023-12-12 11:24] LABS: BLOOD UREA NITROGEN 11 MG/DL (9-23); CALCIUM LEVEL 9.7 MG/DL (8.3-10.6); CARBON DIOXIDE LEVEL 27 MMOL/L (20-31); CHLORIDE LEVEL 102 MMOL/L (98-107); CREATININE FOR GFR 0.83 MG/DL (0.70-1.30); GLOMERULAR FILTRATION RATE > 60.0 (>49); GLUCOSE, FASTING 97 MG/DL (74-106); POTASSIUM SERUM 4.2 MMOL/L (3.5-5.1); SODIUM LEVEL 137 MMOL/L (136-145)
== END ==
LOC: M LAB REF 10:13
PROVIDERS: ATTEND Nurse Practitioner Adult Health
DX: I10 Essential (primary) hypertension (principal)

== ENCOUNTER 2023-12-22 08:02 | Inpatient (IN) | payer MEDICARE ==
[~2023-12-22] VITALS: Ht 170.2 cm; Wt 68.4 kg
[2023-12-22] MEDS: FORMOTEROL FUMARATE 20 MCG/2 ML INHALATION SOLUTION (PERFOROMIST) INH SCH (08:00)
[2023-12-22 08:33] LABS: BASO # 0.1 10^3/uL (0.0-0.2); BASO % 0.3 % (0.0-1.0); EOS # 0.3 10^3/uL (0.0-0.5); EOS % 1.6 % (0.0-3.0); LYMPH # 1.2 10^3/uL (1.5-5.0); LYMPH % 7.8 % (24.0-44.0); MEAN CORPUSCULAR HEMOGLOBIN 31.6 pg (27.0-33.0); MEAN CORPUSCULAR HGB CONC 33.3 g/dl (32.0-36.5); MEAN CORPUSCULAR VOLUME 94.9 fl (80.0-96.0); MONO # 1.2 10^3/uL (0.0-0.8); NEUTROPHILS # 12.4 10^3/uL (1.5-8.5); NEUTROPHILS % 81.9 % (36.0-66.0); PLATELET COUNT, AUTOMATED 298 10^3/uL (150-450); RED BLOOD COUNT 4.11 10^6/uL (4.30-6.10); WHITE BLOOD COUNT 15.2 10^3/uL (4.0-10.0)
[2023-12-22 08:43] LABS: VENOUS BASE EXCESS 1.1 (-2.0-2.0); VENOUS HCO3 24.3 MMOL/L (23.0-27.0); VENOUS PARTIAL PRESSURE CO2 34.5 mmHg (38.0-50.0); VENOUS PARTIAL PRESSURE O2 30.8 mmHg (30.0-50.0); VENOUS PH 7.466 UNITS (7.330-7.430); VENOUS STANDARD HCO3 24.6 MMOL/L; VENOUS TOTAL CO2 25.4 MMOL/L (24.0-28.0)
[2023-12-22] MEDS: methylPREDNISolone 125MG 2ML VIAL IV ONE (08:43)
[2023-12-22] MEDS ORDERED: COLA100C5 PO (08:56)
[2023-12-22] MEDS ORDERED: ASPI81CH33 PO (08:56)
[2023-12-22] MEDS ORDERED: TRAM50TA2 PO (08:57)
[2023-12-22] MEDS ORDERED: BRIL90TA PO (08:58)
[2023-12-22] MEDS: VALSARTAN 40MG TABLET (DIOVAN) PO SCH (09:00)
[2023-12-22 09:03] LABS: CK-MB VALUE MASS < 1.0 NG/ML (<3.6)
[2023-12-22 09:04] LABS: CPK CREATINE PHOSPHOKINASE 64 U/L (46-171); MB/CK RELATIVE INDEX 1.56 (< OR =4)
[2023-12-22 09:05] LABS: ALBUMIN 3.7 G/DL (3.2-5.2); ALKALINE PHOSPHATASE 254 U/L (40-129); ALT/SGPT 35 U/L (7.0-40); AST/SGOT 25 U/L (<34); BILIRUBIN,DIRECT 0.3 MG/DL (<0.4); BILIRUBIN,TOTAL 0.7 MG/DL (0.3-1.2); BLOOD UREA NITROGEN 9 MG/DL (9-23); CALCIUM LEVEL 9.8 MG/DL (8.3-10.6); CARBON DIOXIDE LEVEL 25 MMOL/L (20-31); CHLORIDE LEVEL 103 MMOL/L (98-107); CREATININE FOR GFR 0.79 MG/DL (0.70-1.30); GLOMERULAR FILTRATION RATE > 60.0 (>49); GLUCOSE, FASTING 109 MG/DL (74-106); SODIUM LEVEL 138 MMOL/L (136-145); TOTAL PROTEIN 7.2 G/DL (5.7-8.2)
[2023-12-22 09:06] LABS: THYROID STIMULATING HORMONE 0.423 uIU/ML (0.55-4.78); THYROXINE (T4) 8.4 UG/DL (4.5-10.9)
[2023-12-22] MEDS: IPRATROPIUM 0.5MG/ALBUTEROL 2.5MG INH SOL UD 3ML (DUONEB) NEB ONE (09:21)
[2023-12-22] MEDS ORDERED: ISOVUE-370 76% 100ML VIAL As Ordered ONE (09:26)
[2023-12-22] MEDS: NS 500 ML IV ONE (09:49)
[2023-12-22] MEDS: ALBUTEROL SULFATE 2.5MG/0.5ML INH NEB SOLN INH ONE (10:18)
[2023-12-22 10:19] LABS: CPK CREATINE PHOSPHOKINASE 46 U/L (46-171)
[2023-12-22 10:22] LABS: CK-MB VALUE MASS < 1.0 NG/ML (<3.6); MB/CK RELATIVE INDEX 2.17 (< OR =4)
[2023-12-22] MEDS ORDERED: FERR325T3 PO (10:55)
[2023-12-22] MEDS ORDERED: B-122500 PO (10:55)
[2023-12-22] MEDS ORDERED: LIDO5DIS41 TD (10:55)
[2023-12-22] MEDS ORDERED: VALS40TA9 PO (10:55)
[2023-12-22] MEDS ORDERED: METO1TAB7 PO (10:55)
[2023-12-22] MEDS ORDERED: ATOR-398 PO (10:55)
[2023-12-22] MEDS ORDERED: HOME MED LIST COMPLETE! XX SCH (12:15)
[2023-12-22 12:44] VITALS: O2SAT 96
[2023-12-22] MEDS: GLYCOPYRROLATE INJ 0.2 MG/ML 2 ML VIAL NEB SCH (14:27)
[2023-12-22] MEDS: ATORVASTATIN 20 MG TAB PO SCH (15:04)
[2023-12-22] MEDS: ASPIRIN 81MG CHEW TABLET PO SCH (15:04)
[2023-12-22] MEDS: THIAMINE 100 MG TAB PO SCH (15:06)
[2023-12-22] MEDS: METOPROLOL SUCC (TopROL XL) 50MG **XL** TAB PO SCH (15:07)
[2023-12-22] MEDS: FERROUS SULFATE 325MG TAB PO SCH (15:08)
[2023-12-22] MEDS: FAMOTIDINE 20 MG TAB PO SCH (15:08)
[2023-12-22] MEDS: METOPROLOL 5 MG/5 ML VIAL IV STA (15:09)
[2023-12-22] MEDS: CYANOCOBALAMIN 500 MCG TAB PO SCH (15:09)
[2023-12-22 15:10] VITALS: BP 182/104; TEMP 97; O2SAT 98
[2023-12-22] MEDS: traMADol 50 MG TAB PO PRN (15:16)
[2023-12-22] MEDS: LEVALBUTEROL 1.25MG 0.5ML CONCENTRATE NEB NEB SCH (15:49)
[2023-12-22] MEDS: IPRATROPIUM 0.02% SOLN 0.5MG 2.5ML NEB INH SCH (15:49)
[2023-12-22] MEDS: methylPREDNISolone 125MG 2ML VIAL IV SCH (16:20)
[2023-12-22] MEDS: GABAPENTIN 100 MG CAP PO ONE (16:21)
[2023-12-22] MEDS: hydrALAZINE 20MG/ML 1ML VIAL IV STA (16:21)
[2023-12-22] MEDS: METOPROLOL SUCC (TopROL XL) 50MG **XL** TAB PO ONE (16:21)
[2023-12-22 17:06] LABS: CK-MB VALUE MASS < 1.0 NG/ML (<3.6)
[2023-12-22 17:08] LABS: CPK CREATINE PHOSPHOKINASE 47 U/L (46-171); MB/CK RELATIVE INDEX 2.12 (< OR =4)
[2023-12-22] MEDS: VALSARTAN 40MG TABLET (DIOVAN) PO ONE (17:23)
[2023-12-22 17:24] VITALS: BP 144/80; O2SAT 96
[2023-12-22] MEDS: TICAGRELOR 90 MG TABLET (BRILINTA) PO ONE (17:24)
[2023-12-22] MEDS: ENOXAPARIN 40MG/0.4ML SYRINGE (J1650 PER 10MG) SC ONE (18:07)
[2023-12-22 20:22] VITALS: BP 133/72; TEMP 97.3; O2SAT 95
[2023-12-22] MEDS: traZODone 50 MG TAB PO SCH (22:11)
[2023-12-22] MEDS: DOXYCYCLINE HYCLATE 100MG TABLET PO SCH (22:11)
[2023-12-22] MEDS: DOCUSATE SODIUM 100MG CAPSULE PO SCH (22:11)
[2023-12-22] MEDS: GABAPENTIN 100 MG CAP PO SCH (22:11)
[2023-12-22] MEDS: LIDOCAINE 5% (LIDODERM) PATCH TD SCH (22:12)
[2023-12-22] MEDS: TICAGRELOR 90 MG TABLET (BRILINTA) PO SCH (23:04)
[2023-12-22] MEDS: MORPHINE 2 MG/ML 1ML VIAL IV ONE (23:05)
[2023-12-22 23:52] VITALS: BP 111/76; TEMP 97.2; O2SAT 94
[2023-12-23 00:38] LABS: CK-MB VALUE MASS < 1.0 NG/ML (<3.6)
[2023-12-23 00:45] LABS: CPK CREATINE PHOSPHOKINASE 48 U/L (46-171); MB/CK RELATIVE INDEX 2.08 (< OR =4)
[2023-12-23 04:01] VITALS: BP 148/77; TEMP 97.6; O2SAT 99
[2023-12-23 07:54] VITALS: BP 127/72; TEMP 97.5; O2SAT 98
[2023-12-23 08:42] LABS: CK-MB VALUE MASS < 1.0 NG/ML (<3.6)
[2023-12-23 08:43] LABS: CPK CREATINE PHOSPHOKINASE 48 U/L (46-171); MB/CK RELATIVE INDEX 2.08 (< OR =4)
[2023-12-23] MEDS: predniSONE 20 MG TAB PO SCH (09:46)
[2023-12-23] MEDS: traMADol 50 MG TAB PO ONE (10:04)
[2023-12-23] MEDS ORDERED: NALOXONE INJ 0.4MG/1ML VIAL IV PRN (10:15)
[2023-12-23] MEDS: MORPHINE 10 MG/ML 1ML VIAL IV ONE (12:02)
[2023-12-23] MEDS: cefTRIAXone SOD 1 GM in DEXTROSE 5% (D5W) ADV/MINI-BAG 50 ML IV SCH (12:02)
[2023-12-23] MEDS: DICLOFENAC EPOLAMINE 1.3% PATCH TOP SCH (12:03)
[2023-12-23] MEDS: NS 1,000 ML IV ONE ×2 (12:03→15:47)
[2023-12-23 12:17] VITALS: BP 129/72; TEMP 97.8; O2SAT 98
[2023-12-23] MEDS: PERCOCET 5MG/325MG TAB PO SCH (12:30)
[2023-12-23 16:05] VITALS: BP 133/66; TEMP 97.1; O2SAT 98
[2023-12-23 19:21] LABS: BASO % 0.1 % (0.0-1.0); HEMATOCRIT 33.2 % (42.0-52.0); HEMOGLOBIN 11.4 g/dl (13.5-17.5); LYMPH # 0.7 10^3/uL (1.5-5.0); LYMPH % 2.6 % (24.0-44.0); MEAN CORPUSCULAR HEMOGLOBIN 32.5 pg (27.0-33.0); MEAN CORPUSCULAR HGB CONC 34.3 g/dl (32.0-36.5); MEAN CORPUSCULAR VOLUME 94.6 fl (80.0-96.0); MONO # 1.2 10^3/uL (0.0-0.8); MONO % 4.6 % (2.0-8.0); NEUTROPHILS # 23.3 10^3/uL (1.5-8.5); NEUTROPHILS % 91.6 % (36.0-66.0); PLATELET COUNT, AUTOMATED 309 10^3/uL (150-450); RED BLOOD COUNT 3.51 10^6/uL (4.30-6.10); WHITE BLOOD COUNT 25.5 10^3/uL (4.0-10.0)
[2023-12-23 19:57] LABS: PROCALCITONIN 0.06 ng/ml
[2023-12-23 19:59] LABS: BLOOD UREA NITROGEN 14 MG/DL (9-23); CALCIUM LEVEL 8.8 MG/DL (8.3-10.6); CARBON DIOXIDE LEVEL 23 MMOL/L (20-31); CHLORIDE LEVEL 106 MMOL/L (98-107); CREATININE FOR GFR 0.69 MG/DL (0.70-1.30); GLOMERULAR FILTRATION RATE > 60.0 (>49); GLUCOSE, FASTING 155 MG/DL (74-106); POTASSIUM SERUM 4.2 MMOL/L (3.5-5.1); SODIUM LEVEL 137 MMOL/L (136-145)
[2023-12-23 20:04] VITALS: BP 154/80; TEMP 97.7; O2SAT 96
[2023-12-24] MEDS: MORPHINE 2 MG/ML 1ML VIAL IV ONE (00:25)
[2023-12-24 04:03] VITALS: BP 139/67; TEMP 97.2; O2SAT 95
[2023-12-24 05:57] LABS: HEMATOCRIT 32.7 % (42.0-52.0); HEMOGLOBIN 11.2 g/dl (13.5-17.5); LYMPH # 1.2 10^3/uL (1.5-5.0); LYMPH % 5.8 % (24.0-44.0); MEAN CORPUSCULAR HEMOGLOBIN 31.9 pg (27.0-33.0); MEAN CORPUSCULAR HGB CONC 34.3 g/dl (32.0-36.5); MEAN CORPUSCULAR VOLUME 93.2 fl (80.0-96.0); MONO # 1.4 10^3/uL (0.0-0.8); MONO % 6.7 % (2.0-8.0); NEUTROPHILS # 17.9 10^3/uL (1.5-8.5); NEUTROPHILS % 86.5 % (36.0-66.0); PLATELET COUNT, AUTOMATED 289 10^3/uL (150-450); RED BLOOD COUNT 3.51 10^6/uL (4.30-6.10); WHITE BLOOD COUNT 20.7 10^3/uL (4.0-10.0)
[2023-12-24 06:10] LABS: BLOOD UREA NITROGEN 15 MG/DL (9-23); CALCIUM LEVEL 8.8 MG/DL (8.3-10.6); CARBON DIOXIDE LEVEL 24 MMOL/L (20-31); CHLORIDE LEVEL 107 MMOL/L (98-107); CREATININE FOR GFR 0.69 MG/DL (0.70-1.30); GLOMERULAR FILTRATION RATE > 60.0 (>49); GLUCOSE, FASTING 137 MG/DL (74-106); POTASSIUM SERUM 3.6 MMOL/L (3.5-5.1); SODIUM LEVEL 138 MMOL/L (136-145)
[2023-12-24] MEDS ORDERED: PRED10TA2 PO (06:59)
[2023-12-24] MEDS ORDERED: DOXY-440 PO (06:59)
[2023-12-24] MEDS ORDERED: IPRA0.00 INH (06:59)
[2023-12-24] MEDS ORDERED: PRED20TA PO (06:59)
[2023-12-24 07:54] VITALS: BP 148/67; TEMP 97.5; O2SAT 96
[2023-12-24 08:34] VITALS: O2SAT 96
[2023-12-24 08:35] VITALS: BP 148/67
[2023-12-24] MEDS ORDERED: LIDO1PAD TOP (09:07)
[2023-12-24] MEDS ORDERED: LIDO3CRE14 TOP (09:08)
[2023-12-24] MEDS ORDERED: CEFD300CAP PO (09:16)
== END 2023-12-24 10:24 | disposition home health service (06) | DRG 191 ==
LOC: M ED 08:02 → M ED INP 13:30 → M PCU 15:32
PROVIDERS: ADMIT General Practice; ATTEND General Practice
PROC: B246ZZZ Ultrasonography of Right and Left Heart (ICD-10-PCS; principal; 2023-12-22)
DX: J44.1 Chronic obstructive pulmonary disease with (acute) exacerbation (principal); E87.20 Acidosis, unspecified; M96.A3 Multiple fractures of ribs associated with chest compression and cardiopulmonary resuscitation; I25.10 Atherosclerotic heart disease of native coronary artery without angina pectoris; I25.2 Old myocardial infarction; I10 Essential (primary) hypertension; E78.5 Hyperlipidemia, unspecified; Z87.891 Personal history of nicotine dependence; G45.4 Transient global amnesia; I16.0 Hypertensive urgency; D64.9 Anemia, unspecified; K21.9 Gastro-esophageal reflux disease without esophagitis; K44.9 Diaphragmatic hernia without obstruction or gangrene; N52.9 Male erectile dysfunction, unspecified; M19.90 Unspecified osteoarthritis, unspecified site; Z79.82 Long term (current) use of aspirin; Z79.899 Other long term (current) drug therapy; Z88.1 Allergy status to other antibiotic agents; Z88.8 Allergy status to other drugs, medicaments and biological substances; Z91.048 Other nonmedicinal substance allergy status; Z86.74 Personal history of sudden cardiac arrest; Z95.5 Presence of coronary angioplasty implant and graft

== ENCOUNTER → 2024-01-10 | Outpatient (CLI) | payer MEDICARE ==
[~2024-01-10] MED LIST changes: +ASPI81CH33 PO; +ATOR-398 PO; +B-122500 PO; +BRIL90TA PO; +CEFD300CAP PO; +COLA100C5 PO; +DOXY-440 PO; +FERR325T3 PO; +IPRA0.00 INH; +LIDO1PAD TOP; +LIDO3CRE14 TOP; +LIDO5DIS41 TD; +METO1TAB7 PO; +PRED20TA PO; +TRAM50TA2 PO; +VALS40TA9 PO
[2024-01-10 17:21] LABS: BASO % 0.5 % (0.0-1.0); EOS # 0.2 10^3/uL (0.0-0.5); EOS % 2.6 % (0.0-3.0); HEMATOCRIT 39.9 % (42.0-52.0); HEMOGLOBIN 13.2 g/dl (13.5-17.5); LYMPH # 1.2 10^3/uL (1.5-5.0); LYMPH % 14.8 % (24.0-44.0); MEAN CORPUSCULAR HEMOGLOBIN 32.1 pg (27.0-33.0); MEAN CORPUSCULAR HGB CONC 33.1 g/dl (32.0-36.5); MEAN CORPUSCULAR VOLUME 97.1 fl (80.0-96.0); MONO # 1.1 10^3/uL (0.0-0.8); NEUTROPHILS # 5.5 10^3/uL (1.5-8.5); NEUTROPHILS % 67.7 % (36.0-66.0); PLATELET COUNT, AUTOMATED 255 10^3/uL (150-450); RED BLOOD COUNT 4.11 10^6/uL (4.30-6.10); WHITE BLOOD COUNT 8.1 10^3/uL (4.0-10.0)
[2024-01-10 17:41] LABS: ERYTHROCYTE SEDIMENTATION RATE 22 mm/hr (0-20)
[2024-01-10 17:48] LABS: FREE T4 1.37 NG/DL (0.89-1.76); THYROID STIMULATING HORMONE 0.529 uIU/ML (0.55-4.78)
[2024-01-10 17:50] LABS: FOLATE 10.7 NG/ML (>5.4)
[2024-01-10 17:51] LABS: BLOOD UREA NITROGEN 11 MG/DL (9-23); C REACTIVE PROTEIN QUANTITATIV 0.73 MG/DL (<1.0); CALCIUM LEVEL 9.7 MG/DL (8.3-10.6); CARBON DIOXIDE LEVEL 27 MMOL/L (20-31); CHLORIDE LEVEL 104 MMOL/L (98-107); CREATININE FOR GFR 0.82 MG/DL (0.70-1.30); GLOMERULAR FILTRATION RATE > 60.0 (>49); GLUCOSE, FASTING 87 MG/DL (74-106); POTASSIUM SERUM 4.1 MMOL/L (3.5-5.1); SODIUM LEVEL 138 MMOL/L (136-145)
[2024-01-10 17:52] LABS: IRON (FE) 62 UG/DL (65-175); PERCENT SATURATION 25.3 % (19.7-50.0); TOTAL IRON BINDING CAPACITY 245 UG/DL (250-425); VITAMIN B12 LEVEL 1376 PG/ML (211-911)
== END ==
LOC: M PLALAB 14:30
PROVIDERS: ATTEND Nurse Practitioner Adult Health
DX: R06.02 Shortness of breath (principal); Z79.899 Other long term (current) drug therapy

== ENCOUNTER → 2024-03-18 | Outpatient (CLI) | payer MEDICARE | LOC: M RAD 07:03 | PROVIDERS: ATTEND Nurse Practitioner Adult Health | DX: M54.6 Pain in thoracic spine (principal); S46.812A Strain of other muscles, fascia and tendons at shoulder and upper arm level, left arm, initial encounter; M75.02 Adhesive capsulitis of left shoulder; M25.412 Effusion, left shoulder; M47.814 Spondylosis without myelopathy or radiculopathy, thoracic region; Z87.81 Personal history of (healed) traumatic fracture ==

== ENCOUNTER → 2024-05-20 | Outpatient (CLI) | payer MEDICARE | LOC: M RAD 15:23 | PROVIDERS: ATTEND Nurse Practitioner Adult Health | DX: M25.50 Pain in unspecified joint (principal); M19.041 Primary osteoarthritis, right hand; M19.042 Primary osteoarthritis, left hand ==

== ENCOUNTER → 2024-08-20 | Outpatient (REF) | payer MEDICARE ==
[~2024-08-20] MED LIST changes: +LIDO1ADH93 TD; -LIDO5DIS41 TD; -PRAV20TA2 PO; +PRAV20TA78 PO
== END ==
LOC: M LAB REF 16:31
PROVIDERS: ATTEND Surgery
DX: L72.0 Epidermal cyst (principal)

== ENCOUNTER 2024-09-24 15:06 | Emergency (ER) | payer MEDICARE ==
[~2024-09-24] VITALS: Ht 170.2 cm; Wt 71.4 kg
[2024-09-24] MEDS ORDERED: CLOP75TA2 PO (15:13)
[2024-09-24 16:17] LABS: BASO # 0.0 10^3/uL (0.0-0.2); BASO % 0.4 % (0.0-1.0); EOS # 0.1 10^3/uL (0.0-0.5); EOS % 0.9 % (0.0-3.0); LYMPH # 1.6 10^3/uL (1.5-5.0); LYMPH % 20.3 % (24.0-44.0); MONO # 0.7 10^3/uL (0.0-0.8); MONO % 8.8 % (2.0-8.0); NEUTROPHILS # 5.5 10^3/uL (1.5-8.5); NEUTROPHILS % 69.3 % (36.0-66.0); PLATELET COUNT, AUTOMATED 253 10^3/uL (150-450)
[2024-09-24] MEDS: MORPHINE 2 MG/ML 1 ML VIAL IV ONE ×2 (16:19→18:39)
[2024-09-24 16:48] LABS: ALT/SGPT 20.0 U/L (7.0-40); AST/SGOT 22.0 U/L (<34); CALCIUM LEVEL 9.4 MG/DL (8.3-10.6); CARBON DIOXIDE LEVEL 28.0 MMOL/L (20-31); CHLORIDE LEVEL 106.0 MMOL/L (98-107); CREATININE FOR GFR 0.95 MG/DL (0.70-1.30); GLOMERULAR FILTRATION RATE 86.6 (>49); POTASSIUM SERUM 3.9 MMOL/L (3.5-5.1); SODIUM LEVEL 142.0 MMOL/L (136-145)
[2024-09-24 16:53] LABS: APPEARANCE, URINE CLEAR (CLEAR); BACTERIA, URINE AUTO NEGATIVE (NEGATIVE); BILIRUBIN, URINE AUTO NEGATIVE (NEGATIVE); BLOOD, URINE BLOOD NEGATIVE (NEGATIVE); GLUCOSE, URINE (UA) AUTO NEGATIVE (NEGATIVE); KETONE, URINE AUTO NEGATIVE (NEGATIVE); LEUKOCYTE ESTERASE, URINE AUTO NEGATIVE (NEGATIVE); NITRITE, URINE AUTO NEGATIVE (NEGATIVE); PROTEIN, URINE AUTO NEGATIVE (NEGATIVE); RBC, URINE AUTO 0 /HPF (0-3); SPECIFIC GRAVITY URINE AUTO 1.005 (1.002-1.035); SQUAMOUS EPITHELIAL CELL UR AU 0 /HPF (0-6); UROBILINOGEN, URINE AUTO 0.2 mg/dL (0.0-2.0); WBC, URINE AUTO 1 /HPF (0-3)
[2024-09-24] MEDS ORDERED: ISOVUE-370 76% 100 ML VIAL As Ordered ONE (17:17)
[2024-09-24] MEDS ORDERED: HOME MED LIST COMPLETE! XX SCH (18:10)
[2024-09-24] MEDS ORDERED: METH-1164 PO (23:02)
[2024-09-24 23:03] VITALS: BP 166/90; TEMP 96.8; O2SAT 98
== END 2024-09-24 23:11 | disposition home or self-care (01) ==
LOC: M ED 15:06
DX: M40.294 Other kyphosis, thoracic region (principal); R91.8 Other nonspecific abnormal finding of lung field; Z87.81 Personal history of (healed) traumatic fracture; Z79.82 Long term (current) use of aspirin; Z79.899 Other long term (current) drug therapy; Z88.1 Allergy status to other antibiotic agents; Z88.8 Allergy status to other drugs, medicaments and biological substances
CPT/HCPCS: 71275; 72146; 74177; 80053; 81001; 83690; 85025; 96374; 96376; 99284; Q9967

== ENCOUNTER 2024-12-19 19:25 | Emergency (ER) | payer MEDICARE ==
[~2024-12-19] VITALS: Ht 170.2 cm; Wt 73.3 kg
[~2024-12-19 19:25] MED LIST changes: +CLOP75TA2 PO; -IBUP-1022 PO; +IBUP600T42 PO; +METH-1164 PO
[2024-12-19 22:17] LABS: BASO # 0.1 10^3/uL (0.0-0.2); BASO % 0.3 % (0.0-1.0); EOS # 0.0 10^3/uL (0.0-0.5); EOS % 0.2 % (0.0-3.0); LYMPH # 1.5 10^3/uL (1.5-5.0); LYMPH % 9.4 % (24.0-44.0); MONO # 1.1 10^3/uL (0.0-0.8); MONO % 6.6 % (2.0-8.0); NEUTROPHILS # 13.4 10^3/uL (1.5-8.5); NEUTROPHILS % 82.9 % (36.0-66.0); PLATELET COUNT, AUTOMATED 229 10^3/uL (150-450)
[2024-12-19 22:35] LABS: CALCIUM LEVEL 8.9 MG/DL (8.3-10.6); CARBON DIOXIDE LEVEL 28.0 MMOL/L (20-31); CHLORIDE LEVEL 99.0 MMOL/L (98-107); CK-MB VALUE MASS 2.5 NG/ML (<3.6); CPK CREATINE PHOSPHOKINASE 74.0 U/L (46-171); CREATININE FOR GFR 0.93 MG/DL (0.70-1.30); GLOMERULAR FILTRATION RATE 88.9 (>49); MB/CK RELATIVE INDEX 3.37 (< OR =4); POTASSIUM SERUM 4.3 MMOL/L (3.5-5.1); SODIUM LEVEL 135.0 MMOL/L (136-145)
[2024-12-19] MEDS: NITROGLYCERIN 0.4 MG SUBL TABLET SL PRN (23:35)
[2024-12-19] MEDS: KETOROLAC 30 MG/ML 1 ML VIAL IV ONE (23:35)
[2024-12-20 00:03] LABS: CK-MB VALUE MASS 2.1 NG/ML (<3.6); CPK CREATINE PHOSPHOKINASE 77.0 U/L (46-171); MB/CK RELATIVE INDEX 2.72 (< OR =4)
[2024-12-20] MEDS ORDERED: ISOVUE-370 76% 100 ML VIAL As Ordered ONE (00:04)
[2024-12-20] MEDS ORDERED: HEPARIN SOD 5000 UNITS/ML 1 ML VIAL/SYRINGE IV PRN (05:05)
[2024-12-20] MEDS: HEPARIN DRIP 25,000 UNITS in IV 1 EA IV SCH (05:45)
[2024-12-20 05:49] VITALS: BP 172/97
[2024-12-20] MEDS: NITROGLYCERIN 2% OINT 1 GM *U/D* PKT TOP ONE (05:49)
[2024-12-20 06:34] LABS: PLATELET COUNT, AUTOMATED 173 10^3/uL (150-450)
[2024-12-20] MEDS: GABAPENTIN 100 MG CAP PO ONE (07:10)
[2024-12-20] MEDS: OMEPRAZOLE 20MG CAP PO ONE (07:10)
[2024-12-20] MEDS ORDERED: NITROGLYCERIN IN D5W 25 MG/250 ML (100 MCG/ML) As Ordered ONE (08:17)
[2024-12-20] MEDS: MORPHINE 2 MG/ML 1 ML VIAL IV ONE (08:19)
[2024-12-20] MEDS: ONDANSETRON 4MG/2ML VIAL IV ONE (08:19)
[2024-12-20] MEDS: ACETAMINOPHEN *IV* 1,000 MG in IV 1 EA IV ONE (08:20)
[2024-12-20] MEDS ORDERED: NITROGLYCERIN/D5W 100MCG/ML 25 MG in IV 1 EA IV SCH (08:25)
[2024-12-20 08:30] VITALS: BP 178/86; TEMP 99.3; O2SAT 98
[2024-12-20 09:11] LABS: CK-MB VALUE MASS 1.5 NG/ML (<3.6)
[2024-12-20 09:19] LABS: CPK CREATINE PHOSPHOKINASE 51.0 U/L (46-171); MB/CK RELATIVE INDEX 2.94 (< OR =4)
== END 2024-12-20 08:40 | disposition short-term general hospital (02) ==
LOC: M ED 19:25
DX: I25.110 Atherosclerotic heart disease of native coronary artery with unstable angina pectoris (principal); I10 Essential (primary) hypertension; E78.5 Hyperlipidemia, unspecified; I25.2 Old myocardial infarction; J44.9 Chronic obstructive pulmonary disease, unspecified; K21.9 Gastro-esophageal reflux disease without esophagitis; Z88.1 Allergy status to other antibiotic agents; Z88.8 Allergy status to other drugs, medicaments and biological substances; Z95.5 Presence of coronary angioplasty implant and graft; R00.1 Bradycardia, unspecified
CPT/HCPCS: 71045; 71275; 80048; 82550; 82553; 84484; 85025; 85027; 85730; 87486; 87581; 87633; 87798; 93005; 93041; 94760; 96365; 96375; 99285; J0134; J1885; J2405; Q9967

== ENCOUNTER → 2025-01-07 | Outpatient (CLI) | payer MEDICARE | LOC: M RAD 14:20 | PROVIDERS: ATTEND Nurse Practitioner Adult Health | DX: R06.02 Shortness of breath (principal) ==